=== PATIENT | female | born 1980 | race Caucasian/White ===

== ENCOUNTER 2016-09-23 04:38 | Emergency (ER) | payer OTHER ==
[2016-09-23 05:35] LABS: BASO % 0.2 % (0.0-1.0); EOS # 0.1 K/mm3 (0.0-0.50); EOS % 1.4 % (0.0-3.0); LARGE UNSTAINED CELL # 0.2 K/mm3 (0.0-0.4); LARGE UNSTAINED CELL % 1.8 % (0.0-4.0); LYMPH % 21.1 % (24.0-44.0); MEAN CORPUSCULAR HEMOGLOBIN 31.1 pg (27.0-33.0); MEAN CORPUSCULAR VOLUME 88.8 fl (80.0-96.0); MONO # 0.4 K/mm3 (0.0-0.8); NEUTROPHILS # 6.6 K/mm3 (1.8-7.7); NEUTROPHILS % 71.5 % (36.0-66.0); PLATELET COUNT, AUTOMATED 217 k/mm3 (150-450); RED CELL DISTRIBUTION WIDTH 12.2 % (11.5-14.5); WHITE BLOOD COUNT 9.2 K/mm3 (4.0-10.0)
[2016-09-23 06:02] LABS: ALBUMIN 2.9 GM/DL (3.2-5.2); ALBUMIN/GLOBULIN RATIO 0.91 (1.00-1.93); ALKALINE PHOSPHATASE 29 U/L (45-117); ALT/SGPT 10 U/L (12-78); ANION GAP 7 MEQ/L (8-16); AST/SGOT 17 U/L (15-37); BILIRUBIN,DIRECT < 0.1 MG/DL (0.0-0.2); BILIRUBIN,TOTAL 0.3 MG/DL (0.2-1.0); BLOOD UREA NITROGEN 9 MG/DL (7-18); CALCIUM LEVEL 8.2 MG/DL (8.5-10.1); CARBON DIOXIDE LEVEL 29 MEQ/L (21-32); CHLORIDE LEVEL 103 MEQ/L (98-107); CREATININE FOR GFR 0.67 MG/DL (0.55-1.02); GLOMERULAR FILTRATION RATE > 60.0 (>60); GLUCOSE, FASTING 89 MG/DL (70-105); POTASSIUM SERUM 3.7 MEQ/L (3.5-5.1); SODIUM LEVEL 139 MEQ/L (136-145); TOTAL PROTEIN 6.1 GM/DL (6.4-8.2)
--- NOTE | 2016-09-23 07:52 | REP ---
Clinical: Renal colic and right upper quadrant abdominal pain. Technique: Bee scale ultrasound using curved array transducer. Findings: The liver, spleen and pancreas are normal in contour, size, and echogenicity without focal hepatic, splenic or pancreatic lesions identified. The gallbladder is normal without gallstones, wall thickening or pericholecystic fluid. No biliary ductal dilatation is appreciated, and the common bile duct measures 4.9 mm diameter. The bilateral kidneys are normal in reniform shape without hydronephrosis and 11.5 x 5.9 x 5.6 cm on the right and 11.4 x 5.8 x 5.5 cm on the left. Spleen measures 10.3 x 3.8 x 9.9 cm. No ascites. Visualized portions of the abdominal aorta normal. Intrauterine identified (FHR equals 139 beats per minute). Impression: Normal complete abdominal ultrasound. Signed by Mahendra Amaro MD 09/23/2016 07:43 A
--- NOTE | 2016-09-23 09:47 | EDDOCDS ---
Nurse's Notes [facility] Name: Ana Simeon Age: 36 yrs Sex: Female : 1980 Arrival Date: 09/23/2016 Time: 04:38 Bed 12 Private MD: Diagnosis: Syncope and collapse-postural related; state-17 weeks, ultrasound unremarkable ;Strain of muscle, fascia and tendon of abdomen Presentation: 09/23 04:42 Presenting complaint: EMS states: per EMS pt is 17 weeks renay got up to go tm5 to the bathroom & had a syncopal episode now has right sided flank pain, BG FS 109, no IV access, vital signs stable, denies neck pain. Adult Sepsis Screening: The patient does not have new or worsening altered mentation. Patient's respiratory rate is less than 22. Systolic blood pressure is greater than 100. Patient has a qSOFA score of 0- Negative Sepsis Screen. Suicide/Homicide risk assessment- the patient denies having any suicidal and/or homicidal ideations and does not present with any other emotional, behavioral or mental health complaints. 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 Transition of care: patient was not received from another setting of care. 04:42 Acuity: MIS Level 3 tm5 04:42 Method Of Arrival: Ambulance tm5 Triage Assessment: 04:46 General: Appears in no apparent distress, Behavior is appropriate for age, cooperative. tm5 Pain: Location: right flank pain Pain currently is 1 out of 10 on a pain scale. Quality of pain is described as sharp. Pt Declines HIV testing. The patient is triaged at the bedside. See Assessment in Nurses Notes section of ED record. Neurological: Level of Consciousness is awake, alert, Oriented to person, place, time. Cardiovascular:. Respiratory: Airway is patent Respiratory effort is even, unlabored, Respiratory pattern is regular, symmetrical, Breath sounds are clear bilaterally. GI: Abdomen is flat, Bowel sounds present X 4 quads. : No deficits noted. Derm: Skin is dry, Skin is pale, Skin temperature is warm. TALENT DIRECTOR: 04:53 LMP 05/23/2016, Verified, EDC 02/27/2017, Gestational age from LMP: 17 weeks 4 tm5 days Historical: - Allergies: no known allergies; - Home Meds: 1. Vitamin Oral tab 1 tab once daily 2. folic acid 1 mg Oral tab - PMHx: none; - PSHx: D & C; - Social history: Smoking status: Patient states was never smoker of tobacco. No barriers to communication noted, The patient speaks fluent Indonesian. - Family history: Not pertinent. - : The pt / caregiver states he / she is not on anticoagulants. Home medication list is obtained from the patient. - Exposure Risk Screening:: None identified. Screenin:54 Screening information is obtained from the patient. Fall risk: No risks identified. tm5 Assistance ADL's: requires no assistance with activities of daily living. Abuse/DV Screen: The patient / caregiver reports he/she is: not in a situation that causes fear, pain or injury. Nutritional screening: No deficits noted. Advance Directives: Currently, there is no health care proxy. There is no active DNR order. home support is adequate. Assessment: 04:54 General: see triage assessment. Neurological: Level of Consciousness is awake, alert, tm5 Oriented to person, place, time. Cardiovascular: Rhythm is sinus rhythm No ectopy. 06:27 Reassessment: Patient appears in no apparent distress at this time. Patient states tm5 feeling better. Patient states symptoms have improved. 07:17 General: Appears in no apparent distress, comfortable, Behavior is appropriate for age, mlb1 cooperative. Pain: Location: right flank Pain currently is 2 out of 10 on a pain scale. Neurological: No deficits noted. Respiratory: No deficits noted. Derm: Skin is pink, warm & dry. normal. 08:20 General: Appears in no apparent distress, comfortable, Behavior is appropriate for age, mlb1 cooperative. Pain: Location: right flank Pain currently is 2 out of 10 on a pain scale. 09:15 General: Appears in no apparent distress, comfortable, Behavior is appropriate for age, mlb1 cooperative. Pain: Location: right flank Pain currently is 2 out of 10 on a pain scale. Neurological: No deficits noted. Respiratory: Airway is patent Respiratory effort is even, unlabored. Derm: No deficits noted. 09:31 General: Appears in no apparent distress, comfortable, Behavior is appropriate for age, mlb1 cooperative. Pain: Denies pain. Neurological: No deficits noted. Respiratory: No deficits noted. Vital Signs: 04:52 BP 105 / 67 (auto/); mlb1 04:52 Pulse Ox 98% ; mlb1 04:53 BP 105 / 67; Pulse 65; Resp 18; Temp 97.6(O); Pulse Ox 100% on R/A; Weight 72.57 kg; tm5 Height 5 ft. 7 in. (170.18 cm); Pain 1/10; 05:22 BP 95 / 64 (auto/); tm5 05:22 Pulse 66 MON; Pulse Ox 98% ; tm5 05:52 BP 104 / 68 (auto/); tm5 05:52 Pulse 74 MON; Pulse Ox 98% ; tm5 06:22 BP 111 / 73 (auto/); tm5 06:22 Pulse 68 MON; Resp 20 S; Pulse Ox 99% on R/A; Pain 2/10; tm5 08:56 BP 112 / 70 (auto/); mlb1 08:56 Pulse 74 MON; Pulse Ox 98% ; mlb1 09:15 BP 108 / 67 Supine; Pulse 74; mlb1 09:15 BP 112 / 74 Sitting; Pulse 80; mlb1 09:15 BP 112 / 77 Standing; Pulse 82; mlb1 09:31 BP 100 / 68; Pulse 82; Resp 16; Temp 98.4(TE); Pulse Ox 99% on R/A; Pain 0/10; mlb1 04:53 Body Mass Index 25.06 (72.57 kg, 170.18 cm) tm5 Vitals: 04:46 Glucose Measurement D-stick done by EMS. Log In Time N/A - ambulance arrival. tm5 05:02 Heart Tones 145BPM. tm5 ED Course: 04:39 Patient visited by Adriel Martinez PCA. kb5 04:39 Patient moved to Waiting kb5 04:40 Patient moved to 12 kb5 04:42 Patient visited by Yesy Coronado,MACHO. tm5 04:44 Triage Initiated tm5 04:47 Reilly Moreira DO is Attending Physician. cs11 04:47 Patient visited by Reilly Moreira DO. cs11 04:53 Patient visited by Yesy Coronado,MACHO. tm5 04:54 Awaiting ED physician evaluation. tm5 04:54 The patient / caregiver is instructed regarding the plan of care and ED course. Cardiac tm5 monitor on. Pulse ox on. NIBP on. 05:00 EKG done. (by ED staff). Reviewed by Reilly Moreira DO. mdr 05:01 Patient visited by Benny Barfield PCA. mdr 05:02 Patient visited by Yesy Coronado,MACHO. tm5 05:03 ED physician to see patient. tm5 05:34 Inserted saline lock: 20 gauge in right antecubital area and blood collected. The tm5 patient tolerated the procedure well. Labs drawn. (by ED staff). Sent per order to lab. 05:40 [facility] Payment Agreement was scanned into [employer] and attached to record. hs2 05:41 Patient visited by Yesy Coronado RN. tm5 05:43 Patient name changed from Ana\S\\S\Panov\S\ to Ana\S\ \S\Panov. EDMS 06:26 Patient visited by Yesy Coronado RN. tm5 06:48 Patient moved to Ultrasound ssc 06:49 Patient moved to Sono. tm5 06:57 Attending Physician role handed off by Reilly Moreira DO pc 06:57 Deepak Willingham MD is Attending Physician. pc 07:15 Patient moved to 12 mlb1 07:17 Patient visited by Yaakov Matos, MACHO. mlb1 07:56 ABD COMPLETE US Returned. EDMS 08:43 Patient visited by Yaakov Matos, MACHO. mlb1 09:16 Patient visited by Yaakov Matos, MACHO. mlb1 09:21 Radha Junior OB is Referral Physician. pc 09:31 Discontinued lock intact, bleeding controlled, pressure dressing applied, No mlb1 redness/swelling at site. No procedures done that require assistance. 09:32 Patient visited by Yaakov Matos, MACHO. mlb1 Administered Medications: 05:34 Drug: NS 0.9% 1000 ml [sodium chloride 0.9 % intravenous solution] Route: IV; Rate: tm5 bolus; Site: right antecubital; 06:51 Follow up: IV Status: Completed infusion; IV Intake: 1000ml tm5 Intake: 06:51 IV: 1000.00ml; Total: 1000.00ml. tm5 Order Results: Lab Order: Urinalysis; SPEC'M 09/23/16 05:29 Test: APPEARANCE, URINE; Value: HAZY; Range: CLEAR; Status: F Test: COLOR, URINE; Value: YELLOW; Range: YELLOW; Status: F Test: PH,URINE; Value: 8.0; Range: 5.0-9.0; Units: UNITS; Status: F Test: SPECIFIC GRAVITY URINE AUTO; Value: 1.012; Range: 1.002-1.035; Status: F Test: PROTEIN, URINE AUTO; Value: NEGATIVE; Range: NEGATIVE; Units: mg/dL; Status: F Test: GLUCOSE, URINE (UA) AUTO; Value: NEGATIVE; Range: NEGATIVE; Units: mg/dL; Status: F Test: KETONE, URINE AUTO; Value: NEGATIVE; Range: NEGATIVE; Units: mg/dL; Status: F Test: UROBILINOGEN, URINE AUTO; Value: 0.2; Range: 0.0-2.0; Units: mg/dL; Status: F Test: BILIRUBIN, URINE AUTO; Value: NEGATIVE; Range: NEGATIVE; Status: F Test: NITRITE, URINE AUTO; Value: NEGATIVE; Range: NEGATIVE; Status: F Test: LEUKOCYTE ESTERASE, URINE AUTO; Value: NEGATIVE; Range: NEGATIVE; Status: F Test: BLOOD, URINE BLOOD; Value: NEGATIVE; Range: NEGATIVE; Status: F Test: WBC, URINE AUTO; Value: 0; Range: 0-3; Units: /HPF; Status: F Test: RBC, URINE AUTO; Value: 4; Range: 0-3; Abnormal: Above high normal; Units: /HPF; Status: F Test: BACTERIA, URINE AUTO; Value: NEGATIVE; Range: NEGATIVE; Status: F Test: SQUAMOUS EPITHELIAL CELL UR AU; Value: 0; Range: 0-6; Units: /HPF; Status: F Test: MUCUS, URINE; Value: SMALL; Range: NEGATIVE; Status: F Test: HYALINE CAST, URINE AUTO; Value: 0; Range: 0-1; Units: /LPF; Status: F Lab Order: CBC with Diff; SPEC'M 09/23/16 05:29 Test: WHITE BLOOD COUNT; Value: 9.2; Range: 4.0-10.0; Units: K/mm3; Status: F Test: RED BLOOD COUNT; Value: 4.26; Range: 4.00-5.40; Units: M/mm3; Status: F Test: HEMOGLOBIN; Value: 13.3; Range: 12.0-16.0; Units: g/dl; Status: F Test: HEMATOCRIT; Value: 37.8; Range: 36.0-47.0; Units: %; Status: F Test: MEAN CORPUSCULAR VOLUME; Value: 88.8; Range: 80.0-96.0; Units: fl; Status: F Test: MEAN CORPUSCULAR HEMOGLOBIN; Value: 31.1; Range: 27.0-33.0; Units: pg; Status: F Test: MEAN CORPUSCULAR HGB CONC; Value: 35.0; Range: 32.0-36.5; Units: g/dl; Status: F Test: RED CELL DISTRIBUTION WIDTH; Value: 12.2; Range: 11.5-14.5; Units: %; Status: F Test: PLATELET COUNT, AUTOMATED; Value: 217; Range: 150-450; Units: k/mm3; Status: F Test: NEUTROPHILS %; Value: 71.5; Range: 36.0-66.0; Abnormal: Above high normal; Units: %; Status: F Test: LYMPH %; Value: 21.1; Range: 24.0-44.0; Abnormal: Below low normal; Units: %; Status: F Test: MONO %; Value: 4.0; Range: 0.0-5.0; Units: %; Status: F Test: EOS %; Value: 1.4; Range: 0.0-3.0; Units: %; Status: F Test: BASO %; Value: 0.2; Range: 0.0-1.0; Units: %; Status: F Test: LARGE UNSTAINED CELL %; Value: 1.8; Range: 0.0-4.0; Units: %; Status: F Test: NEUTROPHILS #; Value: 6.6; Range: 1.8-7.7; Units: K/mm3; Status: F Test: LYMPH #; Value: 2.0; Range: 1.5-4.5; Units: K/mm3; Status: F Test: MONO #; Value: 0.4; Range: 0.0-0.8; Units: K/mm3; Status: F Test: EOS #; Value: 0.1; Range: 0.0-0.50; Units: K/mm3; Status: F Test: BASO #; Value: 0.0; Range: 0.0-0.2; Units: K/mm3; Status: F Test: LARGE UNSTAINED CELL #; Value: 0.2; Range: 0.0-0.4; Units: K/mm3; Status: F Lab Order: MED Profile; [facility] 09/23/16 05:29 Test: GLUCOSE, FASTING; Value: 89; Range: 70-105; Units: MG/DL; Status: F Test: BLOOD UREA NITROGEN; Value: 9; Range: 7-18; Units: MG/DL; Status: F Test: CREATININE FOR GFR; Value: 0.67; Range: 0.55-1.02; Units: MG/DL; Status: F Test: GLOMERULAR FILTRATION RATE; Value: > 60.0; Range: >60; Status: F Test: SODIUM LEVEL; Value: 139; Range: 136-145; Units: MEQ/L; Status: F Test: POTASSIUM SERUM; Value: 3.7; Range: 3.5-5.1; Units: MEQ/L; Status: F Test: CHLORIDE LEVEL; Value: 103; Range: 98-107; Units: MEQ/L; Status: F Test: CARBON DIOXIDE LEVEL; Value: 29; Range: 21-32; Units: MEQ/L; Status: F Test: ANION GAP; Value: 7; Range: 8-16; Abnormal: Below low normal; Units: MEQ/L; Status: F Test: CALCIUM LEVEL; Value: 8.2; Range: 8.5-10.1; Abnormal: Below low normal; Units: MG/DL; Status: F Test Note: ; Units are mL/min/1.73 m2 Chronic Kidney Disease Staging per NKF: Stage I & II GFR >=60 Normal to Mildly Decreased Stage III GFR 30-59 Moderately Decreased Stage IV GFR 15-29 Severely Decreased Stage V GFR <15 Very Little GFR Left ESRD GFR <15 on INSTRUCTIONAL DEVELOPER Lab Order: Liver Profile; [facility] 09/23/16 05:29 Test: AST/SGOT; Value: 17; Range: 15-37; Units: U/L; Status: F Test: ALT/SGPT; Value: 10; Range: 12-78; Abnormal: Below low normal; Units: U/L; Status: F Test: ALKALINE PHOSPHATASE; Value: 29; Range: 45-117; Abnormal: Below low normal; Units: U/L; Status: F Test: BILIRUBIN,TOTAL; Value: 0.3; Range: 0.2-1.0; Units: MG/DL; Status: F Test: BILIRUBIN,DIRECT; Value: < 0.1; Range: 0.0-0.2; Units: MG/DL; Status: F Test: TOTAL PROTEIN; Value: 6.1; Range: 6.4-8.2; Abnormal: Below low normal; Units: GM/DL; Status: F Test: ALBUMIN; Value: 2.9; Range: 3.2-5.2; Abnormal: Below low normal; Units: GM/DL; Status: F Test: ALBUMIN/GLOBULIN RATIO; Value: 0.91; Range: 1.00-1.93; Abnormal: Below low normal; Status: F Radiology Order: ABD COMPLETE US Test: ABD COMPLETE US REASON FOR EXAMINATION: R renal colic; Clinical: Renal colic and right upper quadrant abdominal pain.; ; Technique: Bee scale ultrasound using curved array transducer.; ; Findings: The liver, spleen and pancreas are normal in contour, size, and; echogenicity without focal hepatic, splenic or pancreatic lesions identified.; The gallbladder is normal without gallstones, wall thickening or pericholecystic; fluid. No biliary ductal dilatation is appreciated, and the common bile duct; measures 4.9 mm diameter. The bilateral kidneys are normal in reniform shape; without hydronephrosis and 11.5 x 5.9 x 5.6 cm on the right and 11.4 x 5.8 x 5.5; cm on the left. Spleen measures 10.3 x 3.8 x 9.9 cm. No ascites. Visualized; portions of the abdominal aorta normal. Intrauterine identified (FHR; equals 139 beats per minute).; ; Impression:; Normal complete abdominal ultrasound.; ; ; Signed by; Mahendra Amaro MD 09/23/2016 07:43 A; Outcome: 09:21 Discharge ordered by Provider. 09:31 Discharge Assessment: Patient awake, alert and oriented x 3. No cognitive and/or mlb1 functional deficits noted. Patient verbalized understanding of disposition instructions. patient administered narcotics - no. The following High Risk Discharge criteria are identified: None. Discharged to home ambulatory. Condition: good. Discharge instructions given to patient, Instructed on discharge instructions, follow up and referral plans. Demonstrated understanding of instructions, Pt was receptive of discharge instructions/ teaching. Ultrasound Study completed. Property sent home with patient. :47 Patient left the ED. mlb1 Signatures: Dispatcher [employer] EDMS Deepak Willingham MD MD pc Castor, Steven ssc Barney, Michael B RN RN mlb1 Adriel Martinez, SUPERVISOR FILLING AND PACKING SUPERVISOR FILLING AND PACKING kb5 Reilly Moreira, DO DO cs11 Benny Barfield, SUPERVISOR FILLING AND PACKING SUPERVISOR FILLING AND PACKING mdr Kirti Enrique, Reg Reg hs2 Yesy Coronado,RN RN tm5 MTDD
--- NOTE | 2016-09-23 09:47 | EDDOCDS ---
Physician Documentation [facility] Name: Ana Simeon Age: 36 yrs Sex: Female : 1980 Arrival Date: 09/23/2016 Time: 04:38 Bed 12 Private MD: Disposition: 09/23 09:19 Critical Care: Critical care not applicable. pc Disposition: 09/23/16 09:21 Discharged to Home/Self Care. Impression: Syncope and collapse - postural related, state - 17 weeks, ultrasound unremarkable , Strain of muscle, fascia and tendon of abdomen. - Condition is Stable. - Discharge Instructions: Syncope. - Medication Reconciliation, Local Pharmacy Hours, Work Release Form - 1 day form. - Follow up: Radha Junior, OB; When: As previously arranged; Reason: Recheck today's complaints, Continuance of care. - Problem is new. - Symptoms have improved. - Notes: Per Sessions, drink plenty of fluids. You must stand slowly and pause before walking. Call their office with any concerns Historical: - Allergies: no known allergies; - Home Meds: 1. Vitamin Oral tab 1 tab once daily 2. folic acid 1 mg Oral tab - PMHx: none; - PSHx: D & C; - Social history: Smoking status: Patient states was never smoker of tobacco. No barriers to communication noted, The patient speaks fluent [place]. - Family history: Not pertinent. - : The pt / caregiver states he / she is not on anticoagulants. Home medication list is obtained from the patient. - Exposure Risk Screening:: None identified. BUSINESS TECHNOLOGY ARCHITECT: 04:53 LMP 05/23/2016, Verified, EDC 02/27/2017, Gestational age from LMP: 17 weeks 4 tm5 days Vital Signs: 04:52 BP 105 / 67 (auto/); mlb1 04:52 Pulse Ox 98% ; mlb1 04:53 BP 105 / 67; Pulse 65; Resp 18; Temp 97.6(O); Pulse Ox 100% on R/A; Weight 72.57 kg / tm5 159.99 lbs; Height 5 ft. 7 in. (170.18 cm); Pain 1/10; 05:22 BP 95 / 64 (auto/); tm5 05:22 Pulse 66 MON; Pulse Ox 98% ; tm5 05:52 BP 104 / 68 (auto/); tm5 05:52 Pulse 74 MON; Pulse Ox 98% ; tm5 06:22 BP 111 / 73 (auto/); tm5 06:22 Pulse 68 MON; Resp 20 S; Pulse Ox 99% on R/A; Pain 2/10; tm5 08:56 BP 112 / 70 (auto/); mlb1 08:56 Pulse 74 MON; Pulse Ox 98% ; mlb1 09:15 BP 108 / 67 Supine; Pulse 74; mlb1 09:15 BP 112 / 74 Sitting; Pulse 80; mlb1 09:15 BP 112 / 77 Standing; Pulse 82; mlb1 09:31 BP 100 / 68; Pulse 82; Resp 16; Temp 98.4(TE); Pulse Ox 99% on R/A; Pain 0/10; mlb1 04:53 Body Mass Index 25.06 (72.57 kg, 170.18 cm) tm5 MDM: 04:51 ECG WITH READING ER PHYS+CARDIAG ordered. EDMS 05:13 IV Saline Lock ordered. cs11 05:13 NS 0.9% 1000 ml IV at bolus once ordered. cs11 05:14 Urinalysis Ordered. EDMS 05:14 CBC with Diff Ordered. EDMS 05:14 MED Profile Ordered. EDMS 05:14 Liver Profile Ordered. EDMS 05:14 Urine Culture Ordered. EDMS 05:38 Financial registration complete. hs2 05:39 CBC with Diff Reviewed. cs11 05:40 [facility] Payment Agreement was scanned into [employer] and attached to record. hs2 06:04 MED Profile Reviewed. cs11 06:04 Liver Profile Reviewed. cs11 06:26 Urinalysis Reviewed. cs11 06:55 ABD COMPLETE US Ordered. EDMS 09:00 Orthostatic VS ordered. pc 09:19 Test interpretation: LAB - all labs as ordered have been reviewed, interpreted and pc considered in the overall management of the clinical presentation; Ultrasound - interpreted by Radiologist, Abdomen: FHR 136, else nad. The patient has been re-examined and re-evaluated. The patient's symptoms have markedly improved after treatment. Physician consultation: Dr. Herrera Howard MD was contacted at 09:19, regarding patient's condition, and advises the medications/treatment as provided. and agrees with the treatment provided and advises the discharge plans as outlined. Disposition: The historical points, examination findings, and any diagnostic results supporting the provided diagnosis, were discussed with the patient or legal guardian. The need for outpatient follow up with the provider listed on their discharge instructions was discussed. They were encouraged to return to [facility], or the nearest ED, if symptoms worsen/persist, or for any other questions/concerns. Administered Medications: 05:34 Drug: NS 0.9% 1000 ml [sodium chloride 0.9 % intravenous solution] Route: IV; Rate: tm5 bolus; Site: right antecubital; 06:51 Follow up: IV Status: Completed infusion; IV Intake: 1000ml tm5 Signatures: Dispatcher [employer] EDMS Deepak Willingham MD MD pc Barney, Michael B RN RN mlb1 Reilly Moreira, DO cs11 Kirti Enrique, Reg Reg hs2 Yesy Coronado,RN RN tm5 The chart was reviewed and I authenticate all verbal orders and agree with the evaluation and treatment provided.Corrections: (The following items were deleted from the chart) 06:55 06:28 RENAL US+US ordered. EDMS EDMS 06:55 06:32 Abdomen, limited+US ordered. EDMS EDMS Attachments: 05:40 [facility] Payment Agreement hs2 MTDD
--- NOTE | 2016-09-24 19:33 | ECGEPIP ---
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
--- NOTE | 2016-09-25 10:47 | EDDOCDS ---
Physician Documentation [facility] Name: Ana Simeon Age: 36 yrs Sex: Female : 1980 Arrival Date: 09/23/2016 Time: 04:38 Bed 12 Private MD: Disposition: 09/23 09:19 Critical Care: Critical care not applicable. pc Disposition: 09/23/16 09:21 Discharged to Home/Self Care. Impression: Syncope and collapse - postural related, state - 17 weeks, ultrasound unremarkable , Strain of muscle, fascia and tendon of abdomen. - Condition is Stable. - Discharge Instructions: Syncope. - Medication Reconciliation, Local Pharmacy Hours, Work Release Form - 1 day form. - Follow up: Radha Junior, OB; When: As previously arranged; Reason: Recheck today's complaints, Continuance of care. - Problem is new. - Symptoms have improved. - Notes: Per Sessions, drink plenty of fluids. You must stand slowly and pause before walking. Call their office with any concerns Historical: - Allergies: no known allergies; - Home Meds: 1. Vitamin Oral tab 1 tab once daily 2. folic acid 1 mg Oral tab - PMHx: none; - PSHx: D & C; - Social history: Smoking status: Patient states was never smoker of tobacco. No barriers to communication noted, The patient speaks fluent Tajik. - Family history: Not pertinent. - : The pt / caregiver states he / she is not on anticoagulants. Home medication list is obtained from the patient. - Exposure Risk Screening:: None identified. 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 7 in. (170.18 cm); Pain 1/10; 05:22 BP 95 / 64 (auto/); tm5 05:22 Pulse 66 MON; Pulse Ox 98% ; tm5 05:52 BP 104 / 68 (auto/); tm5 05:52 Pulse 74 MON; Pulse Ox 98% ; tm5 06:22 BP 111 / 73 (auto/); tm5 06:22 Pulse 68 MON; Resp 20 S; Pulse Ox 99% on R/A; Pain 2/10; tm5 08:56 BP 112 / 70 (auto/); mlb1 08:56 Pulse 74 MON; Pulse Ox 98% ; mlb1 09:15 BP 108 / 67 Supine; Pulse 74; mlb1 09:15 BP 112 / 74 Sitting; Pulse 80; mlb1 09:15 BP 112 / 77 Standing; Pulse 82; mlb1 09:31 BP 100 / 68; Pulse 82; Resp 16; Temp 98.4(TE); Pulse Ox 99% on R/A; Pain 0/10; mlb1 04:53 Body Mass Index 25.06 (72.57 kg, 170.18 cm) tm5 MDM: 04:51 ECG WITH READING ER PHYS+CARDIAG ordered. EDMS 05:13 IV Saline Lock ordered. cs11 05:13 NS 0.9% 1000 ml IV at bolus once ordered. cs11 05:14 Urinalysis Ordered. EDMS 05:14 CBC with Diff Ordered. EDMS 05:14 MED Profile Ordered. EDMS 05:14 Liver Profile Ordered. EDMS 05:14 Urine Culture Ordered. EDMS 05:38 Financial registration complete. hs2 05:39 CBC with Diff Reviewed. cs11 05:40 [facility] Payment Agreement was scanned into Bizo and attached to record. hs2 06:04 MED Profile Reviewed. cs11 06:04 Liver Profile Reviewed. cs11 06:26 Urinalysis Reviewed. cs11 06:55 ABD COMPLETE US Ordered. EDMS 09:00 Orthostatic VS ordered. pc 09:19 Test interpretation: LAB - all labs as ordered have been reviewed, interpreted and pc considered in the overall management of the clinical presentation; Ultrasound - interpreted by Radiologist, Abdomen: FHR 136, else nad. The patient has been re-examined and re-evaluated. The patient's symptoms have markedly improved after treatment. Physician consultation: Dr. Herrera Howard MD was contacted at 09:19, regarding patient's condition, and advises the medications/treatment as provided. and agrees with the treatment provided and advises the discharge plans as outlined. Disposition: The historical points, examination findings, and any diagnostic results supporting the provided diagnosis, were discussed with the patient or legal guardian. The need for outpatient follow up with the provider listed on their discharge instructions was discussed. They were encouraged to return to [facility], or the nearest ED, if symptoms worsen/persist, or for any other questions/concerns. 15:30 T-Sheet-- Draft Copy was scanned into Bizo and attached to record. gb 15:30 ECG/EKG was scanned into Bizo and attached to record. gb Administered Medications: 05:34 Drug: NS 0.9% 1000 ml [sodium chloride 0.9 % intravenous solution] Route: IV; Rate: tm5 bolus; Site: right antecubital; 06:51 Follow up: IV Status: Completed infusion; IV Intake: 1000ml tm5 Signatures: Dispatcher [employer] EDMS Deepak Willingham MD MD pc Hope Rowe, Reg Reg gb Yaakov Matos RN RN mlb1 Reilly Moreira, DO cs11 Kirti Enrique, Reg Reg hs2 Yesy Coronado,RN RN tm5 The chart was reviewed and I authenticate all verbal orders and agree with the evaluation and treatment provided.Corrections: (The following items were deleted from the chart) 06:55 06:28 RENAL US+US ordered. EDMS EDMS 06:55 06:32 Abdomen, limited+US ordered. EDMS EDMS Attachments: 05:40 [facility] Payment Agreement hs2 15:30 T-Sheet-- Draft Copy gb 15:30 ECG/EKG gb Chart Complete MTDD
--- NOTE | 2016-09-25 10:48 | EDDOCDS ---
Physician Documentation [facility] Name: Ana Simeon Age: 36 yrs Sex: Female : 1980 Arrival Date: 09/23/2016 Time: 04:38 Bed 12 Private MD: Disposition: 09/23 09:19 Critical Care: Critical care not applicable. pc Disposition: 09/23/16 09:21 Discharged to Home/Self Care. Impression: Syncope and collapse - postural related, state - 17 weeks, ultrasound unremarkable , Strain of muscle, fascia and tendon of abdomen. - Condition is Stable. - Discharge Instructions: Syncope. - Medication Reconciliation, Local Pharmacy Hours, Work Release Form - 1 day form. - Follow up: Radha Junior, OB; When: As previously arranged; Reason: Recheck today's complaints, Continuance of care. - Problem is new. - Symptoms have improved. - Notes: Per Sessions, drink plenty of fluids. You must stand slowly and pause before walking. Call their office with any concerns Historical: - Allergies: no known allergies; - Home Meds: 1. Vitamin Oral tab 1 tab once daily 2. folic acid 1 mg Oral tab - PMHx: none; - PSHx: D & C; - Social history: Smoking status: Patient states was never smoker of tobacco. No barriers to communication noted, The patient speaks fluent Hungarian. - Family history: Not pertinent. - : The pt / caregiver states he / she is not on anticoagulants. Home medication list is obtained from the patient. - Exposure Risk Screening:: None identified. 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 7 in. (170.18 cm); Pain 1/10; 05:22 BP 95 / 64 (auto/); tm5 05:22 Pulse 66 MON; Pulse Ox 98% ; tm5 05:52 BP 104 / 68 (auto/); tm5 05:52 Pulse 74 MON; Pulse Ox 98% ; tm5 06:22 BP 111 / 73 (auto/); tm5 06:22 Pulse 68 MON; Resp 20 S; Pulse Ox 99% on R/A; Pain 2/10; tm5 08:56 BP 112 / 70 (auto/); mlb1 08:56 Pulse 74 MON; Pulse Ox 98% ; mlb1 09:15 BP 108 / 67 Supine; Pulse 74; mlb1 09:15 BP 112 / 74 Sitting; Pulse 80; mlb1 09:15 BP 112 / 77 Standing; Pulse 82; mlb1 09:31 BP 100 / 68; Pulse 82; Resp 16; Temp 98.4(TE); Pulse Ox 99% on R/A; Pain 0/10; mlb1 04:53 Body Mass Index 25.06 (72.57 kg, 170.18 cm) tm5 MDM: 04:51 ECG WITH READING ER PHYS+CARDIAG ordered. EDMS 05:13 IV Saline Lock ordered. cs11 05:13 NS 0.9% 1000 ml IV at bolus once ordered. cs11 05:14 Urinalysis Ordered. EDMS 05:14 CBC with Diff Ordered. EDMS 05:14 MED Profile Ordered. EDMS 05:14 Liver Profile Ordered. EDMS 05:14 Urine Culture Ordered. EDMS 05:38 Financial registration complete. hs2 05:39 CBC with Diff Reviewed. cs11 05:40 [facility] Payment Agreement was scanned into EPS and attached to record. hs2 06:04 MED Profile Reviewed. cs11 06:04 Liver Profile Reviewed. cs11 06:26 Urinalysis Reviewed. cs11 06:55 ABD COMPLETE US Ordered. EDMS 09:00 Orthostatic VS ordered. pc 09:19 Test interpretation: LAB - all labs as ordered have been reviewed, interpreted and pc considered in the overall management of the clinical presentation; Ultrasound - interpreted by Radiologist, Abdomen: FHR 136, else nad. The patient has been re-examined and re-evaluated. The patient's symptoms have markedly improved after treatment. Physician consultation: Dr. Herrera Howard MD was contacted at 09:19, regarding patient's condition, and advises the medications/treatment as provided. and agrees with the treatment provided and advises the discharge plans as outlined. Disposition: The historical points, examination findings, and any diagnostic results supporting the provided diagnosis, were discussed with the patient or legal guardian. The need for outpatient follow up with the provider listed on their discharge instructions was discussed. They were encouraged to return to [facility], or the nearest ED, if symptoms worsen/persist, or for any other questions/concerns. 15:30 T-Sheet-- Draft Copy was scanned into EPS and attached to record. gb 15:30 ECG/EKG was scanned into EPS and attached to record. gb Administered Medications: 05:34 Drug: NS 0.9% 1000 ml [sodium chloride 0.9 % intravenous solution] Route: IV; Rate: tm5 bolus; Site: right antecubital; 06:51 Follow up: IV Status: Completed infusion; IV Intake: 1000ml tm5 Signatures: Dispatcher [employer] EDMS Deepak Willingham MD MD pc Hope Rowe, Reg Reg gb Yaakov Matos RN RN mlb1 Reilly Moreira, DO cs11 Kirti Enrique, Reg Reg hs2 Yesy Coronado,RN RN tm5 The chart was reviewed and I authenticate all verbal orders and agree with the evaluation and treatment provided.Corrections: (The following items were deleted from the chart) 06:55 06:28 RENAL US+US ordered. EDMS EDMS 06:55 06:32 Abdomen, limited+US ordered. EDMS EDMS Attachments: 05:40 [facility] Payment Agreement hs2 15:30 T-Sheet-- Draft Copy gb 15:30 ECG/EKG gb Chart Complete MTDD
--- NOTE | 2016-09-25 10:48 | EDDOCDS ---
Nurse's Notes [facility] Name: Ana Galindo Age: 36 yrs Sex: Female : 1980 Arrival Date: 09/23/2016 Time: 04:38 Bed 12 Private MD: Diagnosis: Syncope and collapse-postural related; state-17 weeks, ultrasound unremarkable ;Strain of muscle, fascia and tendon of abdomen Presentation: 09/23 04:42 Presenting complaint: EMS states: per EMS pt is 17 weeks renay got up to go tm5 to the bathroom & had a syncopal episode now has right sided flank pain, BG FS 109, no IV access, vital signs stable, denies neck pain. Adult Sepsis Screening: The patient does not have new or worsening altered mentation. Patient's respiratory rate is less than 22. Systolic blood pressure is greater than 100. Patient has a qSOFA score of 0- Negative Sepsis Screen. Suicide/Homicide risk assessment- the patient denies having any suicidal and/or homicidal ideations and does not present with any other emotional, behavioral or mental health complaints. 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 Transition of care: patient was not received from another setting of care. 04:42 Acuity: MIS Level 3 tm5 04:42 Method Of Arrival: Ambulance tm5 Triage Assessment: 04:46 General: Appears in no apparent distress, Behavior is appropriate for age, cooperative. tm5 Pain: Location: right flank pain Pain currently is 1 out of 10 on a pain scale. Quality of pain is described as sharp. Pt Declines HIV testing. The patient is triaged at the bedside. See Assessment in Nurses Notes section of ED record. Neurological: Level of Consciousness is awake, alert, Oriented to person, place, time. Cardiovascular:. Respiratory: Airway is patent Respiratory effort is even, unlabored, Respiratory pattern is regular, symmetrical, Breath sounds are clear bilaterally. GI: Abdomen is flat, Bowel sounds present X 4 quads. : No deficits noted. Derm: Skin is dry, Skin is pale, Skin temperature is warm. 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 Vitamin Oral tab 1 tab once daily 2. folic acid 1 mg Oral tab - PMHx: none; - PSHx: D & C; - Social history: Smoking status: Patient states was never smoker of tobacco. No barriers to communication noted, The patient speaks fluent Polish. - Family history: Not pertinent. - : The pt / caregiver states he / she is not on anticoagulants. Home medication list is obtained from the patient. - Exposure Risk Screening:: None identified. Screenin:54 Screening information is obtained from the patient. Fall risk: No risks identified. tm5 Assistance ADL's: requires no assistance with activities of daily living. Abuse/DV Screen: The patient / caregiver reports he/she is: not in a situation that causes fear, pain or injury. Nutritional screening: No deficits noted. Advance Directives: Currently, there is no health care proxy. There is no active DNR order. home support is adequate. Assessment: 04:54 General: see triage assessment. Neurological: Level of Consciousness is awake, alert, tm5 Oriented to person, place, time. Cardiovascular: Rhythm is sinus rhythm No ectopy. 06:27 Reassessment: Patient appears in no apparent distress at this time. Patient states tm5 feeling better. Patient states symptoms have improved. 07:17 General: Appears in no apparent distress, comfortable, Behavior is appropriate for age, mlb1 cooperative. Pain: Location: right flank Pain currently is 2 out of 10 on a pain scale. Neurological: No deficits noted. Respiratory: No deficits noted. Derm: Skin is pink, warm & dry. normal. 08:20 General: Appears in no apparent distress, comfortable, Behavior is appropriate for age, mlb1 cooperative. Pain: Location: right flank Pain currently is 2 out of 10 on a pain scale. 09:15 General: Appears in no apparent distress, comfortable, Behavior is appropriate for age, mlb1 cooperative. Pain: Location: right flank Pain currently is 2 out of 10 on a pain scale. Neurological: No deficits noted. Respiratory: Airway is patent Respiratory effort is even, unlabored. Derm: No deficits noted. 09:31 General: Appears in no apparent distress, comfortable, Behavior is appropriate for age, mlb1 cooperative. Pain: Denies pain. Neurological: No deficits noted. Respiratory: No deficits noted. Vital Signs: 04:52 BP 105 / 67 (auto/); mlb1 04:52 Pulse Ox 98% ; mlb1 04:53 BP 105 / 67; Pulse 65; Resp 18; Temp 97.6(O); Pulse Ox 100% on R/A; Weight 72.57 kg; tm5 Height 5 ft. 7 in. (170.18 cm); Pain 1/10; 05:22 BP 95 / 64 (auto/); tm5 05:22 Pulse 66 MON; Pulse Ox 98% ; tm5 05:52 BP 104 / 68 (auto/); tm5 05:52 Pulse 74 MON; Pulse Ox 98% ; tm5 06:22 BP 111 / 73 (auto/); tm5 06:22 Pulse 68 MON; Resp 20 S; Pulse Ox 99% on R/A; Pain 2/10; tm5 08:56 BP 112 / 70 (auto/); mlb1 08:56 Pulse 74 MON; Pulse Ox 98% ; mlb1 09:15 BP 108 / 67 Supine; Pulse 74; mlb1 09:15 BP 112 / 74 Sitting; Pulse 80; mlb1 09:15 BP 112 / 77 Standing; Pulse 82; mlb1 09:31 BP 100 / 68; Pulse 82; Resp 16; Temp 98.4(TE); Pulse Ox 99% on R/A; Pain 0/10; mlb1 04:53 Body Mass Index 25.06 (72.57 kg, 170.18 cm) tm5 Vitals: 04:46 Glucose Measurement D-stick done by EMS. Log In Time N/A - ambulance arrival. tm5 05:02 Heart Tones 145BPM. tm5 ED Course: 04:39 Patient visited by Adriel Martinez PCA. kb5 04:39 Patient moved to Waiting kb5 04:40 Patient moved to 12 kb5 04:42 Patient visited by Yesy Coronado,MACHO. tm5 04:44 Triage Initiated tm5 04:47 Reilly Mejia DO is Attending Physician. cs11 04:47 Patient visited by Reilly Mejia DO. cs11 04:53 Patient visited by Yesy Coronado,MACHO. tm5 04:54 Awaiting ED physician evaluation. tm5 04:54 The patient / caregiver is instructed regarding the plan of care and ED course. Cardiac tm5 monitor on. Pulse ox on. NIBP on. 05:00 EKG done. (by ED staff). Reviewed by Reilly Mejia DO. mdr 05:01 Patient visited by Benny Barfield PCA. mdr 05:02 Patient visited by Yesy Coronado,MACHO. tm5 05:03 ED physician to see patient. tm5 05:34 Inserted saline lock: 20 gauge in right antecubital area and blood collected. The tm5 patient tolerated the procedure well. Labs drawn. (by ED staff). Sent per order to lab. 05:40 [facility] Payment Agreement was scanned into [employer] and attached to record. hs2 05:41 Patient visited by Yesy Coronado RN. tm5 05:43 Patient name changed from Ana\S\\S\Panov\S\ to Ana\S\ \S\Panov. EDMS 06:26 Patient visited by Yesy Coronado RN. tm5 06:48 Patient moved to Ultrasound ssc 06:49 Patient moved to Sono. tm5 06:57 Attending Physician role handed off by Reilly Mejia DO pc 06:57 Deepak Willingham MD is Attending Physician. pc 07:15 Patient moved to 12 mlb1 07:17 Patient visited by Yaakov Matos, MACHO. mlb1 07:56 ABD COMPLETE US Returned. EDMS 08:43 Patient visited by Yaakov Matos, MACHO. mlb1 09:16 Patient visited by Yaakov Matos, MACHO. mlb1 09:21 Radha Junior OB is Referral Physician. pc 09:31 Discontinued lock intact, bleeding controlled, pressure dressing applied, No mlb1 redness/swelling at site. No procedures done that require assistance. 09:32 Patient visited by Yaakov Matos, MACHO. mlb1 15:30 T-Sheet-- Draft Copy was scanned into [employer] and attached to record. gb 15:30 ECG/EKG was scanned into [employer] and attached to record. gb 09/24 20:02 EKG-ADULT Returned. EDMS Administered Medications: 09/23 05:34 Drug: NS 0.9% 1000 ml [sodium chloride 0.9 % intravenous solution] Route: IV; Rate: tm5 bolus; Site: right antecubital; 06:51 Follow up: IV Status: Completed infusion; IV Intake: 1000ml tm5 Intake: 06:51 IV: 1000.00ml; Total: 1000.00ml. tm5 Order Results: Lab Order: Urinalysis; SPEC'M 09/23/16 05:29 Test: APPEARANCE, URINE; Value: HAZY; Range: CLEAR; Status: F Test: COLOR, URINE; Value: YELLOW; Range: YELLOW; Status: F Test: PH,URINE; Value: 8.0; Range: 5.0-9.0; Units: UNITS; Status: F Test: SPECIFIC GRAVITY URINE AUTO; Value: 1.012; Range: 1.002-1.035; Status: F Test: PROTEIN, URINE AUTO; Value: NEGATIVE; Range: NEGATIVE; Units: mg/dL; Status: F Test: GLUCOSE, URINE (UA) AUTO; Value: NEGATIVE; Range: NEGATIVE; Units: mg/dL; Status: F Test: KETONE, URINE AUTO; Value: NEGATIVE; Range: NEGATIVE; Units: mg/dL; Status: F Test: UROBILINOGEN, URINE AUTO; Value: 0.2; Range: 0.0-2.0; Units: mg/dL; Status: F Test: BILIRUBIN, URINE AUTO; Value: NEGATIVE; Range: NEGATIVE; Status: F Test: NITRITE, URINE AUTO; Value: NEGATIVE; Range: NEGATIVE; Status: F Test: LEUKOCYTE ESTERASE, URINE AUTO; Value: NEGATIVE; Range: NEGATIVE; Status: F Test: BLOOD, URINE BLOOD; Value: NEGATIVE; Range: NEGATIVE; Status: F Test: WBC, URINE AUTO; Value: 0; Range: 0-3; Units: /HPF; Status: F Test: RBC, URINE AUTO; Value: 4; Range: 0-3; Abnormal: Above high normal; Units: /HPF; Status: F Test: BACTERIA, URINE AUTO; Value: NEGATIVE; Range: NEGATIVE; Status: F Test: SQUAMOUS EPITHELIAL CELL UR AU; Value: 0; Range: 0-6; Units: /HPF; Status: F Test: MUCUS, URINE; Value: SMALL; Range: NEGATIVE; Status: F Test: HYALINE CAST, URINE AUTO; Value: 0; Range: 0-1; Units: /LPF; Status: F Lab Order: Urine Culture; SPEC'M 09/23/16 05:29 Test: URINE CULTURE; Value: <EXTERNAL COMMENT eCWMed> FULL REPORT IN LAB NOTES (eCW and Medent).; Status: F Test: URINE CULTURE; Value: URINE CULTURE RESULT NO GROWTH CLINICAL SIGNIFICANCE 1 ORGANISM; Status: F Lab Order: CBC with Diff; SPEC'M 09/23/16 05:29 Test: WHITE BLOOD COUNT; Value: 9.2; Range: 4.0-10.0; Units: K/mm3; Status: F Test: RED BLOOD COUNT; Value: 4.26; Range: 4.00-5.40; Units: M/mm3; Status: F Test: HEMOGLOBIN; Value: 13.3; Range: 12.0-16.0; Units: g/dl; Status: F Test: HEMATOCRIT; Value: 37.8; Range: 36.0-47.0; Units: %; Status: F Test: MEAN CORPUSCULAR VOLUME; Value: 88.8; Range: 80.0-96.0; Units: fl; Status: F Test: MEAN CORPUSCULAR HEMOGLOBIN; Value: 31.1; Range: 27.0-33.0; Units: pg; Status: F Test: MEAN CORPUSCULAR HGB CONC; Value: 35.0; Range: 32.0-36.5; Units: g/dl; Status: F Test: RED CELL DISTRIBUTION WIDTH; Value: 12.2; Range: 11.5-14.5; Units: %; Status: F Test: PLATELET COUNT, AUTOMATED; Value: 217; Range: 150-450; Units: k/mm3; Status: F Test: NEUTROPHILS %; Value: 71.5; Range: 36.0-66.0; Abnormal: Above high normal; Units: %; Status: F Test: LYMPH %; Value: 21.1; Range: 24.0-44.0; Abnormal: Below low normal; Units: %; Status: F Test: MONO %; Value: 4.0; Range: 0.0-5.0; Units: %; Status: F Test: EOS %; Value: 1.4; Range: 0.0-3.0; Units: %; Status: F Test: BASO %; Value: 0.2; Range: 0.0-1.0; Units: %; Status: F Test: LARGE UNSTAINED CELL %; Value: 1.8; Range: 0.0-4.0; Units: %; Status: F Test: NEUTROPHILS #; Value: 6.6; Range: 1.8-7.7; Units: K/mm3; Status: F Test: LYMPH #; Value: 2.0; Range: 1.5-4.5; Units: K/mm3; Status: F Test: MONO #; Value: 0.4; Range: 0.0-0.8; Units: K/mm3; Status: F Test: EOS #; Value: 0.1; Range: 0.0-0.50; Units: K/mm3; Status: F Test: BASO #; Value: 0.0; Range: 0.0-0.2; Units: K/mm3; Status: F Test: LARGE UNSTAINED CELL #; Value: 0.2; Range: 0.0-0.4; Units: K/mm3; Status: F Lab Order: MED Profile; [facility] 05:29 Test: GLUCOSE, FASTING; Value: 89; Range: 70-105; Units: MG/DL; Status: F Test: BLOOD UREA NITROGEN; Value: 9; Range: 7-18; Units: MG/DL; Status: F Test: CREATININE FOR GFR; Value: 0.67; Range: 0.55-1.02; Units: MG/DL; Status: F Test: GLOMERULAR FILTRATION RATE; Value: > 60.0; Range: >60; Status: F Test: SODIUM LEVEL; Value: 139; Range: 136-145; Units: MEQ/L; Status: F Test: POTASSIUM SERUM; Value: 3.7; Range: 3.5-5.1; Units: MEQ/L; Status: F Test: CHLORIDE LEVEL; Value: 103; Range: 98-107; Units: MEQ/L; Status: F Test: CARBON DIOXIDE LEVEL; Value: 29; Range: 21-32; Units: MEQ/L; Status: F Test: ANION GAP; Value: 7; Range: 8-16; Abnormal: Below low normal; Units: MEQ/L; Status: F Test: CALCIUM LEVEL; Value: 8.2; Range: 8.5-10.1; Abnormal: Below low normal; Units: MG/DL; Status: F Test Note: ; Units are mL/min/1.73 m2 Chronic Kidney Disease Staging per NKF: Stage I & II GFR >=60 Normal to Mildly Decreased Stage III GFR 30-59 Moderately Decreased Stage IV GFR 15-29 Severely Decreased Stage V GFR <15 Very Little GFR Left ESRD GFR <15 on MAGNETIC TAPE WINDER Lab Order: Liver Profile; SPEC'M 09/23/16 05:29 Test: AST/SGOT; Value: 17; Range: 15-37; Units: U/L; Status: F Test: ALT/SGPT; Value: 10; Range: 12-78; Abnormal: Below low normal; Units: U/L; Status: F Test: ALKALINE PHOSPHATASE; Value: 29; Range: 45-117; Abnormal: Below low normal; Units: U/L; Status: F Test: BILIRUBIN,TOTAL; Value: 0.3; Range: 0.2-1.0; Units: MG/DL; Status: F Test: BILIRUBIN,DIRECT; Value: < 0.1; Range: 0.0-0.2; Units: MG/DL; Status: F Test: TOTAL PROTEIN; Value: 6.1; Range: 6.4-8.2; Abnormal: Below low normal; Units: GM/DL; Status: F Test: ALBUMIN; Value: 2.9; Range: 3.2-5.2; Abnormal: Below low normal; Units: GM/DL; Status: F Test: ALBUMIN/GLOBULIN RATIO; Value: 0.91; Range: 1.00-1.93; Abnormal: Below low normal; Status: F Radiology Order: EKG-ADULT Test: EKG-ADULT REASON FOR EXAMINATION: Syncope; Stationary ECG Study; [facility] - ED; ; Test Date: 2016-09-23; Pat Name: ANA GALINDO Department:; Room: -; Gender: F Branch Lead: mr; : 1980 Requested By: REILLY MEJIA; Order Number: [id number] Reading MD: Martha Garcia; Measurements; Intervals [place]; Rate: 66 P: 46; RI: 175 QRS: 17; QRSD: 98 T: 8; QT: 393; QTc: 412; Interpretive Statements; SINUS RHYTHM; POSSIBLE RIGHT VENTRICULAR CONDUCTION DELAY; NO PRIOR FOR COMPARISON; Electronically Signed On 09-24-2016 19:32:54 EST by Martha Garcia; Radiology Order: ABD COMPLETE US Test: ABD COMPLETE US REASON FOR EXAMINATION: R renal colic; Clinical: Renal colic and right upper quadrant abdominal pain.; ; Technique: Bee scale ultrasound using curved array transducer.; ; Findings: The liver, spleen and pancreas are normal in contour, size, and; echogenicity without focal hepatic, splenic or pancreatic lesions identified.; The gallbladder is normal without gallstones, wall thickening or pericholecystic; fluid. No biliary ductal dilatation is appreciated, and the common bile duct; measures 4.9 mm diameter. The bilateral kidneys are normal in reniform shape; without hydronephrosis and 11.5 x 5.9 x 5.6 cm on the right and 11.4 x 5.8 x 5.5; cm on the left. Spleen measures 10.3 x 3.8 x 9.9 cm. No ascites. Visualized; portions of the abdominal aorta normal. Intrauterine identified (FHR; equals 139 beats per minute).; ; Impression:; Normal complete abdominal ultrasound.; ; ; Signed by; Mahendra Amaro MD 09/23/2016 07:43 A; Outcome: 09:21 Discharge ordered by Provider. 09:31 Discharge Assessment: Patient awake, alert and oriented x 3. No cognitive and/or mlb1 functional deficits noted. Patient verbalized understanding of disposition instructions. patient administered narcotics - no. The following High Risk Discharge criteria are identified: None. Discharged to home ambulatory. Condition: good. Discharge instructions given to patient, Instructed on discharge instructions, follow up and referral plans. Demonstrated understanding of instructions, Pt was receptive of discharge instructions/ teaching. Ultrasound Study completed. Property sent home with patient. 09:47 Patient left the ED. mlb1 Signatures: Dispatcher [employer] EDMS Deepak Willingham MD MD pc Castor, Steven ssc Barnhardt, Gloria, Reg Reg gb Yaaokv Matos, RN RN mlb1 Adriel Martinez, TAKE UP OPERATOR TAKE UP OPERATOR kb5 Reilly Mejia DO DO cs11 Benny Barfield, TAKE UP OPERATOR TAKE UP OPERATOR mdr Kirti Enrique, Reg Reg hs2 Yesy Coronado,RN RN tm5 Chart Complete MTDD
== END 2016-09-23 09:47 | disposition home or self-care (01) ==
LOC: M ED 04:38
DX: O99.89 Other specified diseases and conditions complicating pregnancy, childbirth and the puerperium (principal); R10.30 Lower abdominal pain, unspecified; R31.9 Hematuria, unspecified; Z3A.17 17 weeks gestation of pregnancy; Z79.899 Other long term (current) drug therapy

== ENCOUNTER 2016-09-28 14:15 | Emergency (ER) | payer OTHER ==
[2016-09-28] MEDS ORDERED: ACETAMINOPHEN 325 MG TAB As Ordered ONE (16:34)
--- NOTE | 2016-09-28 18:00 | EDDOCDS ---
Physician Documentation [facility] Name: Ana Simeon Age: 36 yrs Sex: Female : 1980 Arrival Date: 09/28/2016 Time: 14:15 Bed PR Private MD: Radha Junior [facility] Disposition: 09/28/16 17:43 Discharged to Home/Self Care. Impression: Postconcussional syndrome, Low back pain, Hematuria. - Condition is Stable. - Discharge Instructions: General Headache Without Cause, Hematuria, Adult, Second Trimester of , [id number]. - Medication Reconciliation form. - Follow up: Radha Junior [facility]; When: Tomorrow; Reason: Wound/Symptom Recheck, Recheck today's complaints, Worsening of conditions, Continuance of care. - Problem is an ongoing problem. - Symptoms are unchanged. - Notes: May take tylenol as needed for pain Historical: - Allergies: No known drug Allergies; - Home Meds: 1. folic acid 1 mg Oral tab once daily 2. Vitamin Oral tab 1 tab once daily - PMHx: cardiac issues that she saw a orthopedic rn for and had an echo that may have shown a right ventricular delay; - PSHx: D & C; - Social history: Smoking status: Patient states former smoker of tobacco. No barriers to communication noted, The patient speaks fluent Belarusian. - Family history: Not pertinent. - : The pt / caregiver states he / she is not on anticoagulants. Home medication list is obtained from the patient, [employer] import data. - Exposure Risk Screening:: None identified. AUTOMATIC LOG CUT OFF SAWYER: 09/28 14:35 2, 1, Living 0, LMP 05/23/2016 kcs Vital Signs: 14:17 BP 129 / 80; Pulse 103; Resp 18 S; Temp 98.0(O); Pulse Ox 98% on R/A; Weight 71.67 kg / gr2 158.01 lbs (R); Height 5 ft. 7 in. (170.18 cm) (R); Pain 3/10; 17:56 BP 122 / 82; Pulse 76; Resp 16; Temp 97.9(O); Pulse Ox 100% ; lr2 14:17 Body Mass Index 24.75 (71.67 kg, 170.18 cm) gr2 MDM: 16:13 ECG WITH READING ER PHYS+CARDIAG ordered. EDMS 16:31 Heart Tones ordered. cc10 16:32 Acetaminophen Tablet 975 mg PO once ordered. cc10 16:33 UA Ordered. EDMS 17:35 UA Reviewed. cc10 Administered Medications: 16:37 Not Given (Patient Refused; Pt states that her headache isn't severe enough for ms18 medicationss): Acetaminophen Tablet 975 mg PO once Signatures: Dispatcher [employer] EDMS Matilda Mendes, RN RN kcs Marcin Blancas, PA-C PA-C cc10 Cherrie Cortes RN RN ms18 MTDD
--- NOTE | 2016-09-28 18:00 | EDDOCDS ---
Nurse's Notes [facility] Name: Ana Simeon Age: 36 yrs Sex: Female : 1980 Arrival Date: 09/28/2016 Time: 14:15 Bed PR Private MD: Radha Junior [facility] Diagnosis: Postconcussional syndrome;Low back pain;Hematuria Presentation: 09/28 14:31 Presenting complaint: Patient states: on she started with right flank pain - kcs increased in intensity - states she sat on the toilet to pee and then passed out - woke up and went back to bed - was seen here, treated and released - did f/u with Ob but they did not do any testing and she continues to have a headache and right flank pain. is 18 weeks . Adult Sepsis Screening: The patient does not have new or worsening altered mentation. Patient's respiratory rate is less than 22. Systolic blood pressure is greater than 100. Patient has a qSOFA score of 0- Negative Sepsis Screen. Suicide/Homicide risk assessment- the patient denies having any suicidal and/or homicidal ideations and does not present with any other emotional, behavioral or mental health complaints. 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 Transition of care: patient was not received from another setting of care. 14:31 Acuity: MIS Level 3 kcs 14:31 Method Of Arrival: Walkin/Carried/Asstd kcs 17:59 This patient has no additional risk factors. ms18 Triage Assessment: 14:35 Headache History: A change in the character of the headache the patient is experiencing kcs has occured. General: Appears comfortable, well developed, well nourished, well groomed, Behavior is cooperative, pleasant. Pain: Location: head = 2/10 and right flank pain = 2/10. HIV screening NA for this visit active duty . Neurological: Level of Consciousness is awake, alert. Respiratory: Airway is patent Respiratory effort is even, unlabored, Respiratory pattern is regular, symmetrical. Derm: Skin is intact, is healthy with good turgor, Skin is dry, Skin is normal. 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 folic acid 1 mg Oral tab once daily 2. Vitamin Oral tab 1 tab once daily - PMHx: cardiac issues that she saw a investigative assistant for and had an echo that may have shown a right ventricular delay; - PSHx: D & C; - Social history: Smoking status: Patient states former smoker of tobacco. No barriers to communication noted, The patient speaks fluent Eritrean. - Family history: Not pertinent. - : The pt / caregiver states he / she is not on anticoagulants. Home medication list is obtained from the patient, [employer] import data. - Exposure Risk Screening:: None identified. Screenin:58 Screening information is obtained from the patient. Fall risk: No risks identified. ms18 Assistance ADL's: requires no assistance with activities of daily living. Abuse/DV Screen: The patient / caregiver reports he/she is: not in a situation that causes fear, pain or injury. Nutritional screening: No deficits noted. Advance Directives: There is no living will. home support is adequate. Assessment: 17:29 General: Appears in no apparent distress, comfortable, Behavior is appropriate for age, ms18 cooperative. Pain: Denies pain. Neurological: Level of Consciousness is awake, alert, obeys commands, Oriented to person, place, time. Respiratory: No deficits noted. Derm: Skin is pink, warm & dry. normal. 17:58 General: Appears in no apparent distress, comfortable, well nourished, well groomed, ms18 Behavior is appropriate for age, cooperative, pleasant. Pain: Denies pain. Neurological: Level of Consciousness is awake, alert, obeys commands, Oriented to person, place, time. Respiratory: No deficits noted. Airway is patent Respiratory effort is even, unlabored. Derm: Skin is pink, warm & dry. normal. Vital Signs: 14:17 BP 129 / 80; Pulse 103; Resp 18 S; Temp 98.0(O); Pulse Ox 98% on R/A; Weight 71.67 kg gr2 (R); Height 5 ft. 7 in. (170.18 cm) (R); Pain 3/10; 17:56 BP 122 / 82; Pulse 76; Resp 16; Temp 97.9(O); Pulse Ox 100% ; lr2 14:17 Body Mass Index 24.75 (71.67 kg, 170.18 cm) gr2 Vitals: 14:17 Log In Time: September 28, 2016 at 14:17. gr2 17:28 Heart Tones 145BPM. ms18 ED Course: 14:16 Patient visited by Carrie Ramírez. gr2 14:16 Patient moved to Waiting gr2 14:17 Other - Complete Info On Cds is Private Physician. gr2 14:18 Patient visited by Carrie Ramírez. gr2 14:18 Patient moved to Pre RCE gr2 14:34 Triage Initiated kcs 15:49 Patient moved to Triage 1 ms18 16:16 Marcin Blancas PA-C is PHCP. cc10 16:16 Martha Garcia MD is Attending Physician. cc10 16:16 Patient visited by Marcin Blancas PA-C. cc10 16:16 Patient visited by Marcin Blancas PA-C. cc10 16:32 [facility] is Private Physician. cc10 17:13 UA Sent. ms18 17:28 Patient visited by Cherrie Cortes RN. ms18 17:28 EKG done. (by ED staff). Reviewed by Marcin Blancas PA-C. ms18 17:29 Patient moved to TR2 ms18 17:43 [facility] is Referral Physician. cc10 17:50 Patient moved to PR1 / 25 ms18 17:58 The patient / caregiver is instructed regarding the plan of care and ED course. Patient ms18 has correct armband on for positive identification. Property sent home with patient. :Personal belongings accompany Pt. 17:58 No IV's were initiated during this patient's visit. No procedures done that require ms18 assistance. Administered Medications: 16:37 Not Given (Patient Refused; Pt states that her headache isn't severe enough for ms18 medicationss): Acetaminophen Tablet 975 mg PO once Order Results: Lab Order: UA; SPEC'M 09/28/16 17:13 Test: APPEARANCE, URINE; Value: CLEAR; Range: CLEAR; Status: F Test: COLOR, URINE; Value: YELLOW; Range: YELLOW; Status: F Test: PH,URINE; Value: 5.0; Range: 5.0-9.0; Units: UNITS; Status: F Test: SPECIFIC GRAVITY URINE AUTO; Value: 1.016; Range: 1.002-1.035; Status: F Test: PROTEIN, URINE AUTO; Value: NEGATIVE; Range: NEGATIVE; Units: mg/dL; Status: F Test: GLUCOSE, URINE (UA) AUTO; Value: NEGATIVE; Range: NEGATIVE; Units: mg/dL; Status: F Test: KETONE, URINE AUTO; Value: 1+; Range: NEGATIVE; Abnormal: Above high normal; Units: mg/dL; Status: F Test: UROBILINOGEN, URINE AUTO; Value: 0.2; Range: 0.0-2.0; Units: mg/dL; Status: F Test: BILIRUBIN, URINE AUTO; Value: NEGATIVE; Range: NEGATIVE; Status: F Test: NITRITE, URINE AUTO; Value: NEGATIVE; Range: NEGATIVE; Status: F Test: LEUKOCYTE ESTERASE, URINE AUTO; Value: NEGATIVE; Range: NEGATIVE; Status: F Test: BLOOD, URINE BLOOD; Value: 2+; Range: NEGATIVE; Abnormal: Above high normal; Status: F Test: WBC, URINE AUTO; Value: 0; Range: 0-3; Units: /HPF; Status: F Test: RBC, URINE AUTO; Value: 3; Range: 0-3; Units: /HPF; Status: F Test: BACTERIA, URINE AUTO; Value: NEGATIVE; Range: NEGATIVE; Status: F Test: SQUAMOUS EPITHELIAL CELL UR AU; Value: 1; Range: 0-6; Units: /HPF; Status: F Test: MUCUS, URINE; Value: SMALL; Range: NEGATIVE; Status: F Test: HYALINE CAST, URINE AUTO; Value: 1; Range: 0-1; Units: /LPF; Status: F Outcome: 17:43 Discharge ordered by Provider. cc10 17:58 Discharge Assessment: Patient awake, alert and oriented x 3. No cognitive and/or ms18 functional deficits noted. Patient verbalized understanding of disposition instructions. patient administered narcotics - no. The following High Risk Discharge criteria are identified: None. Discharged to home ambulatory. Condition: good Condition: stable Condition: improved. Discharge instructions given to patient, Instructed on discharge instructions, follow up and referral plans. Demonstrated understanding of instructions, Pt was receptive of discharge instructions/ teaching. No special radiology studies were completed. 18:00 Patient left the ED. ms18 Signatures: Matilda Mendes RN RN Carrie Pimentel gr2 Marcin Blancas PA-C PA-C cc10 Cherrie Cortes RN RN ms18 Allison Andrews lr2 Corrections: (The following items were deleted from the chart) 14:34 14:31 Presenting complaint: Patient states: on she started with right flank kcs pain - increased in intensity - states she sat on the toilet to pee and then passed out - woke up and went back to bed - was seen here, treated and released - did f/u with Ob but they did not do any testing and she continues to have a headache and right flank pain kcs MTDD
--- NOTE | 2016-09-29 09:56 | ECGEPIP ---
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
--- NOTE | 2016-09-30 19:00 | EDDOCDS ---
Physician Documentation [facility] Name: Ana Simeon Age: 36 yrs Sex: Female : 1980 Arrival Date: 09/28/2016 Time: 14:15 Bed PR Private MD: Radha Junior [facility] Disposition: 09/28/16 17:43 Discharged to Home/Self Care. Impression: Postconcussional syndrome, Low back pain, Hematuria. - Condition is Stable. - Discharge Instructions: General Headache Without Cause, Hematuria, Adult, Second Trimester of , [id number]. - Medication Reconciliation form. - Follow up: Radha Junior [facility]; When: Tomorrow; Reason: Wound/Symptom Recheck, Recheck today's complaints, Worsening of conditions, Continuance of care. - Problem is an ongoing problem. - Symptoms are unchanged. - Notes: May take tylenol as needed for pain Historical: - Allergies: No known drug Allergies; - Home Meds: 1. folic acid 1 mg Oral tab once daily 2. Vitamin Oral tab 1 tab once daily - PMHx: cardiac issues that she saw a paste mixer for and had an echo that may have shown a right ventricular delay; - PSHx: D & C; - Social history: Smoking status: Patient states former smoker of tobacco. No barriers to communication noted, The patient speaks fluent Israeli. - Family history: Not pertinent. - : The pt / caregiver states he / she is not on anticoagulants. Home medication list is obtained from the patient, [employer] import data. - Exposure Risk Screening:: None identified. 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 7 in. (170.18 cm) (R); Pain 3/10; 17:56 BP 122 / 82; Pulse 76; Resp 16; Temp 97.9(O); Pulse Ox 100% ; lr2 14:17 Body Mass Index 24.75 (71.67 kg, 170.18 cm) gr2 MDM: 16:13 ECG WITH READING ER PHYS+CARDIAG ordered. EDMS 16:31 Heart Tones ordered. cc10 16:32 Acetaminophen Tablet 975 mg PO once ordered. cc10 16:33 UA Ordered. EDMS 17:35 UA Reviewed. cc10 09/29 12:54 T-Sheet-- Draft Copy was scanned into [employer] and attached to record. gb 12:54 ECG/EKG was scanned into [employer] and attached to record. gb Administered Medications: 09/28 16:37 Not Given (Patient Refused; Pt states that her headache isn't severe enough for ms18 medicationss): Acetaminophen Tablet 975 mg PO once Signatures: Dispatcher [employer] EDMS Matilda Mendes, MACHO RN kcs Hope Rowe, Oswaldo Reg gb Marcin Blancas PA-C PAJbC ccCherrie Zaman RN RN ms18 The chart was reviewed and I authenticate all verbal orders and agree with the evaluation and treatment provided.Attachments: 09/29 12:54 T-Sheet-- Draft Copy gb 12:54 ECG/EKG gb Chart Complete MTDD
--- NOTE | 2016-09-30 19:00 | EDDOCDS ---
Nurse's Notes [facility] Name: Ana Galindo Age: 36 yrs Sex: Female : 1980 Arrival Date: 09/28/2016 Time: 14:15 Bed PR Private MD: Radha Junior [facility] Diagnosis: Postconcussional syndrome;Low back pain;Hematuria Presentation: 09/28 14:31 Presenting complaint: Patient states: on she started with right flank pain - kcs increased in intensity - states she sat on the toilet to pee and then passed out - woke up and went back to bed - was seen here, treated and released - did f/u with Ob but they did not do any testing and she continues to have a headache and right flank pain. is 18 weeks . Adult Sepsis Screening: The patient does not have new or worsening altered mentation. Patient's respiratory rate is less than 22. Systolic blood pressure is greater than 100. Patient has a qSOFA score of 0- Negative Sepsis Screen. Suicide/Homicide risk assessment- the patient denies having any suicidal and/or homicidal ideations and does not present with any other emotional, behavioral or mental health complaints. 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 Transition of care: patient was not received from another setting of care. 14:31 Acuity: MIS Level 3 kcs 14:31 Method Of Arrival: Walkin/Carried/Asstd kcs 17:59 This patient has no additional risk factors. ms18 Triage Assessment: 14:35 Headache History: A change in the character of the headache the patient is experiencing kcs has occured. General: Appears comfortable, well developed, well nourished, well groomed, Behavior is cooperative, pleasant. Pain: Location: head = 2/10 and right flank pain = 2/10. HIV screening NA for this visit active duty . Neurological: Level of Consciousness is awake, alert. Respiratory: Airway is patent Respiratory effort is even, unlabored, Respiratory pattern is regular, symmetrical. Derm: Skin is intact, is healthy with good turgor, Skin is dry, Skin is normal. 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 folic acid 1 mg Oral tab once daily 2. Vitamin Oral tab 1 tab once daily - PMHx: cardiac issues that she saw a rn pain management for and had an echo that may have shown a right ventricular delay; - PSHx: D & C; - Social history: Smoking status: Patient states former smoker of tobacco. No barriers to communication noted, The patient speaks fluent [place] Citizen. - Family history: Not pertinent. - : The pt / caregiver states he / she is not on anticoagulants. Home medication list is obtained from the patient, [employer] import data. - Exposure Risk Screening:: None identified. Screenin:58 Screening information is obtained from the patient. Fall risk: No risks identified. ms18 Assistance ADL's: requires no assistance with activities of daily living. Abuse/DV Screen: The patient / caregiver reports he/she is: not in a situation that causes fear, pain or injury. Nutritional screening: No deficits noted. Advance Directives: There is no living will. home support is adequate. Assessment: 17:29 General: Appears in no apparent distress, comfortable, Behavior is appropriate for age, ms18 cooperative. Pain: Denies pain. Neurological: Level of Consciousness is awake, alert, obeys commands, Oriented to person, place, time. Respiratory: No deficits noted. Derm: Skin is pink, warm & dry. normal. 17:58 General: Appears in no apparent distress, comfortable, well nourished, well groomed, ms18 Behavior is appropriate for age, cooperative, pleasant. Pain: Denies pain. Neurological: Level of Consciousness is awake, alert, obeys commands, Oriented to person, place, time. Respiratory: No deficits noted. Airway is patent Respiratory effort is even, unlabored. Derm: Skin is pink, warm & dry. normal. Vital Signs: 14:17 BP 129 / 80; Pulse 103; Resp 18 S; Temp 98.0(O); Pulse Ox 98% on R/A; Weight 71.67 kg gr2 (R); Height 5 ft. 7 in. (170.18 cm) (R); Pain 3/10; 17:56 BP 122 / 82; Pulse 76; Resp 16; Temp 97.9(O); Pulse Ox 100% ; lr2 14:17 Body Mass Index 24.75 (71.67 kg, 170.18 cm) gr2 Vitals: 14:17 Log In Time: September 28, 2016 at 14:17. gr2 17:28 Heart Tones 145BPM. ms18 ED Course: 14:16 Patient visited by Carrie Ramírez. gr2 14:16 Patient moved to Waiting gr2 14:17 Other - Complete Info On Cds is Private Physician. gr2 14:18 Patient visited by Carrie Ramírez. gr2 14:18 Patient moved to Pre RCE gr2 14:34 Triage Initiated kcs 15:49 Patient moved to Triage 1 ms18 16:16 Marcin Blancas PA-C is PHCP. cc10 16:16 Martha Garcia MD is Attending Physician. cc10 16:16 Patient visited by Marcin Blancas PA-C. cc10 16:16 Patient visited by Marcin Blancas PA-C. cc10 16:32 [facility] is Private Physician. cc10 17:13 UA Sent. ms18 17:28 Patient visited by Cherrie Cortes RN. ms18 17:28 EKG done. (by ED staff). Reviewed by Marcin Blancas PA-C. ms18 17:29 Patient moved to TR2 ms18 17:43 [facility] is Referral Physician. cc10 17:50 Patient moved to PR1 / 25 ms18 17:58 The patient / caregiver is instructed regarding the plan of care and ED course. Patient ms18 has correct armband on for positive identification. Property sent home with patient. :Personal belongings accompany Pt. 17:58 No IV's were initiated during this patient's visit. No procedures done that require ms18 assistance. 09/29 10:05 EKG-ADULT Returned. EDMS 12:54 T-Sheet-- Draft Copy was scanned into [employer] and attached to record. gb 12:54 ECG/EKG was scanned into [employer] and attached to record. gb Administered Medications: 09/28 16:37 Not Given (Patient Refused; Pt states that her headache isn't severe enough for ms18 medicationss): Acetaminophen Tablet 975 mg PO once Order Results: Lab Order: UA; SPEC'M 09/28/16 17:13 Test: APPEARANCE, URINE; Value: CLEAR; Range: CLEAR; Status: F Test: COLOR, URINE; Value: YELLOW; Range: YELLOW; Status: F Test: PH,URINE; Value: 5.0; Range: 5.0-9.0; Units: UNITS; Status: F Test: SPECIFIC GRAVITY URINE AUTO; Value: 1.016; Range: 1.002-1.035; Status: F Test: PROTEIN, URINE AUTO; Value: NEGATIVE; Range: NEGATIVE; Units: mg/dL; Status: F Test: GLUCOSE, URINE (UA) AUTO; Value: NEGATIVE; Range: NEGATIVE; Units: mg/dL; Status: F Test: KETONE, URINE AUTO; Value: 1+; Range: NEGATIVE; Abnormal: Above high normal; Units: mg/dL; Status: F Test: UROBILINOGEN, URINE AUTO; Value: 0.2; Range: 0.0-2.0; Units: mg/dL; Status: F Test: BILIRUBIN, URINE AUTO; Value: NEGATIVE; Range: NEGATIVE; Status: F Test: NITRITE, URINE AUTO; Value: NEGATIVE; Range: NEGATIVE; Status: F Test: LEUKOCYTE ESTERASE, URINE AUTO; Value: NEGATIVE; Range: NEGATIVE; Status: F Test: BLOOD, URINE BLOOD; Value: 2+; Range: NEGATIVE; Abnormal: Above high normal; Status: F Test: WBC, URINE AUTO; Value: 0; Range: 0-3; Units: /HPF; Status: F Test: RBC, URINE AUTO; Value: 3; Range: 0-3; Units: /HPF; Status: F Test: BACTERIA, URINE AUTO; Value: NEGATIVE; Range: NEGATIVE; Status: F Test: SQUAMOUS EPITHELIAL CELL UR AU; Value: 1; Range: 0-6; Units: /HPF; Status: F Test: MUCUS, URINE; Value: SMALL; Range: NEGATIVE; Status: F Test: HYALINE CAST, URINE AUTO; Value: 1; Range: 0-1; Units: /LPF; Status: F Radiology Order: EKG-ADULT Test: EKG-ADULT REASON FOR EXAMINATION: passed out; Stationary ECG Study; 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 cc10 17:58 Discharge Assessment: Patient awake, alert and oriented x 3. No cognitive and/or ms18 functional deficits noted. Patient verbalized understanding of disposition instructions. patient administered narcotics - no. The following High Risk Discharge criteria are identified: None. Discharged to home ambulatory. Condition: good Condition: stable Condition: improved. Discharge instructions given to patient, Instructed on discharge instructions, follow up and referral plans. Demonstrated understanding of instructions, Pt was receptive of discharge instructions/ teaching. No special radiology studies were completed. 18:00 Patient left the ED. ms18 Signatures: Dispatcher [employer] EDMS Matilda Mendes RN RN kcs Hope Rowe, Reg Reg gb Carrie Ramírez gr2 Marcin Blancas PAGeorgina PAJbC cc10 Cherrie Cortes RN RN ms18 Allison Andrews lr2 Corrections: (The following items were deleted from the chart) 14:34 14:31 Presenting complaint: Patient states: on she started with right flank kcs pain - increased in intensity - states she sat on the toilet to pee and then passed out - woke up and went back to bed - was seen here, treated and released - did f/u with Ob but they did not do any testing and she continues to have a headache and right flank pain kcs Chart Complete MTDD
--- NOTE | 2016-09-30 19:00 | EDDOCDS ---
Physician Documentation [facility] Name: Ana Simeon Age: 36 yrs Sex: Female : 1980 Arrival Date: 09/28/2016 Time: 14:15 Bed PR Private MD: Radha Junior [facility] Disposition: 09/28/16 17:43 Discharged to Home/Self Care. Impression: Postconcussional syndrome, Low back pain, Hematuria. - Condition is Stable. - Discharge Instructions: General Headache Without Cause, Hematuria, Adult, Second Trimester of , [id number]. - Medication Reconciliation form. - Follow up: Radha Junior [facility]; When: Tomorrow; Reason: Wound/Symptom Recheck, Recheck today's complaints, Worsening of conditions, Continuance of care. - Problem is an ongoing problem. - Symptoms are unchanged. - Notes: May take tylenol as needed for pain Historical: - Allergies: No known drug Allergies; - Home Meds: 1. folic acid 1 mg Oral tab once daily 2. Vitamin Oral tab 1 tab once daily - PMHx: cardiac issues that she saw a bulk intake worker for and had an echo that may have shown a right ventricular delay; - PSHx: D & C; - Social history: Smoking status: Patient states former smoker of tobacco. No barriers to communication noted, The patient speaks fluent [place]. - Family history: Not pertinent. - : The pt / caregiver states he / she is not on anticoagulants. Home medication list is obtained from the patient, [employer] import data. - Exposure Risk Screening:: None identified. 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 7 in. (170.18 cm) (R); Pain 3/10; 17:56 BP 122 / 82; Pulse 76; Resp 16; Temp 97.9(O); Pulse Ox 100% ; lr2 14:17 Body Mass Index 24.75 (71.67 kg, 170.18 cm) gr2 MDM: 16:13 ECG WITH READING ER PHYS+CARDIAG ordered. EDMS 16:31 Heart Tones ordered. cc10 16:32 Acetaminophen Tablet 975 mg PO once ordered. cc10 16:33 UA Ordered. EDMS 17:35 UA Reviewed. cc10 09/29 12:54 T-Sheet-- Draft Copy was scanned into [employer] and attached to record. gb 12:54 ECG/EKG was scanned into [employer] and attached to record. gb Administered Medications: 09/28 16:37 Not Given (Patient Refused; Pt states that her headache isn't severe enough for ms18 medicationss): Acetaminophen Tablet 975 mg PO once Signatures: Dispatcher [employer] EDMS Matilda Mendes, MACHO RN kcs Hope Rowe, Oswaldo Reg gb Marcin Blancas PA-C PAJbC ccCherrie Zaman RN RN ms18 The chart was reviewed and I authenticate all verbal orders and agree with the evaluation and treatment provided.Attachments: 09/29 12:54 T-Sheet-- Draft Copy gb 12:54 ECG/EKG gb Chart Complete MTDD
== END 2016-09-28 18:00 | disposition home or self-care (01) ==
LOC: M ED 14:15
DX: O99.351 Diseases of the nervous system complicating pregnancy, first trimester (principal); G44.309 Post-traumatic headache, unspecified, not intractable; O99.89 Other specified diseases and conditions complicating pregnancy, childbirth and the puerperium; R31.9 Hematuria, unspecified; M54.5 Low back pain; Z87.891 Personal history of nicotine dependence; Z3A.18 18 weeks gestation of pregnancy

== ENCOUNTER 2017-01-29 21:23 | Inpatient (IN) | payer OTHER ==
[~2017-01-29] VITALS: Ht 170.2 cm; Wt 81.0 kg
[2017-01-29 21:40] VITALS: BP 124/86
[2017-01-29] MEDS ORDERED: LR 1,000 ML IV SCH (22:31)
[2017-01-29] MEDS ORDERED: PENICILLIN G POTASSIUM IV 5 MU in D5W MINI-BAG PLUS 100 ML IV STA (22:31)
[2017-01-29] MEDS ORDERED: OXYTOCIN DRIP 30 UNITS in APPROPRIATE DILUENT 1 EA IV SCH (22:45)
[2017-01-29 22:53] LABS: MEAN CORPUSCULAR HEMOGLOBIN 31.1 pg (27.0-33.0); MEAN CORPUSCULAR HGB CONC 34.2 g/dl (32.0-36.5); RED CELL DISTRIBUTION WIDTH 12.7 % (11.5-14.5); WHITE BLOOD COUNT 16.7 K/mm3 (4.0-10.0)
[2017-01-29] MEDS ORDERED: BETAMETHASONE SOLUSPAN 6MG/ML INJ 5ML (J0702) IM SCH (23:15)
[2017-01-29 23:46] VITALS: BP 106/68
[2017-01-30] VITALS (9 sets, daily range): BP systolic 105–135; BP diastolic 59–81
[2017-01-30] MEDS ORDERED: ACETAMINOPHEN 500 MG TAB PO PRN (01:45)
[2017-01-30] MEDS ORDERED: ANUSOL HC CREAM 30GM TOP PRN (01:45)
[2017-01-30] MEDS ORDERED: IBUPROFEN 800 MG TAB PO PRN (01:45)
[2017-01-30] MEDS ORDERED: PROMETHAZINE 25 MG TAB PO PRN (01:45)
[2017-01-30] MEDS ORDERED: MOM 30ML SUSPENSION UDC PO PRN (01:45)
[2017-01-30] MEDS ORDERED: DOCUSATE SODIUM 100 MG CAP PO PRN (01:45)
[2017-01-30] MEDS ORDERED: MEASLES,MUMPS,RUBELLA VACCINE INJ (MMR-II) (90707) SC SCH (01:45)
[2017-01-30] MEDS ORDERED: ONDANSETRON 4MG/2ML VIAL (J2405) IV PRN (01:45)
[2017-01-30] MEDS ORDERED: RHOGAM 300 MCG (1500 IU) INJ (J2790) IM SCH (01:45)
[2017-01-30] MEDS ORDERED: DIBUCAINE 1% OINTMENT 30GM TOP PRN (01:45)
[2017-01-30] MEDS ORDERED: LIDOCAINE 1% MDV INJ 50 ML VIAL INFIL ONE (01:45)
[2017-01-30] MEDS ORDERED: METHYLERGONOVINE MALEATE 0.2 MG TAB PO PRN (01:45)
[2017-01-30] MEDS ORDERED: PENICILLIN G POTASSIUM IV 2.5 MU in D5W 100 ML IV SCH (03:00)
[2017-01-30] MEDS: PRENATAL VITAMINS CHEWABLE TABLET PO SCH (08:34)
[2017-01-31 05:49] VITALS: BP 103/60
[2017-01-31] MEDS: PRENATAL VITAMINS CHEWABLE TABLET PO SCH (09:44)
[2017-01-31 17:59] VITALS: BP 111/74
[2017-02-01 05:43] VITALS: BP 131/69
--- NOTE | 2017-02-01 06:50 | IPNPDOC ---
Text Note Date of Service The patient was seen on 02/01/17. NOTE PPD2 prog note States feeling well, no complaints. No heavy VB. Pain controlled. Voiding, ambulatory. Bonding well and breast feeding well. VSSAF CTAB RRR Ut at U-2, firm Ext no CCE a/p: Doing well. d/c this morning. To bonding if baby not released. Sessions VS,Evie, I+O VSEvie, I+O Vital Signs Date Time Temp Pulse Resp B/P (MAP) Pulse Ox O2 Delivery O2 Flow Rate FiO2 02/01/17 05:43 98.2 86 18 131/69 (89) 01/30/17 04:30 Room Air SESSIONS,JAI Silver MD Feb 01, 2017 06:50
--- NOTE | 2017-02-01 06:57 | DS.PDOC ---
Discharge Summary General Date of Admission Jan 29, 2017 at 22:12 Date of Discharge [id number] Discharge Summary PROCEDURES PERFORMED DURING STAY: spontaneous vaginal delivery ADMITTING DIAGNOSIS: 1. premature ruptured membranes at 35+6 weeks DISCHARGE DIAGNOSES: 1. Healthy male infant HOSPITAL COURSE: Admitted for active labor/PPROM and delivery. GBS unknown. Uncomplicated, see delivery note. DISCHARGE MEDICATIONS: Motrin, Tylenol, Colace, Lanolin, Dibucaine Physical exam: see note from this morning LABORATORY DATA: Please see below. ACTIVITY: as tolerated. Nothing in vagina for 6 weeks. DIET: regular DISPOSITION:stable TIME SPENT ON DISCHARGE: Greater than 15 minutes. Sessions Vital Signs/I&Os Vital Signs Date Time Temp Pulse Resp B/P (MAP) Pulse Ox O2 Delivery O2 Flow Rate FiO2 02/01/17 05:43 98.2 86 18 131/69 (89) 01/30/17 04:30 Room Air Microbiology Microbiology 01/29/17 Group B Streptococcus Screen (DEAN), Received Pending Allergies Coded Allergies: No Known Allergies (Unverified , 01/29/17) SESSIONS,JAI Silver MD Feb 01, 2017 06:57
== END 2017-02-01 15:00 | disposition home or self-care (01) | DRG 775 ==
LOC: M LDO 21:23 → M LDI 22:12 → M OBS 01-30 04:21
PROVIDERS: ADMIT Student in an Organized Health Care Education/Training Program; ATTEND Student in an Organized Health Care Education/Training Program
PROC: 10E0XZZ Delivery of Products of Conception, External Approach (ICD-10-PCS; principal; 2017-01-30)
PROC: 0KQM0ZZ Repair Perineum Muscle, Open Approach (ICD-10-PCS; 2017-01-30)
PROC: 0HQ9XZZ Repair Perineum Skin, External Approach (ICD-10-PCS; 2017-01-30)
DX: O60.14X0 Preterm labor third trimester with preterm delivery third trimester, not applicable or unspecified (principal); Z37.0 Single live birth; Z3A.35 35 weeks gestation of pregnancy; O70.1 Second degree perineal laceration during delivery; O70.0 First degree perineal laceration during delivery

== ENCOUNTER → 2017-06-28 | Outpatient (CLI) | payer OTHER ==
--- NOTE | 2017-06-28 15:30 | REP ---
Bilateral lower extremity Duplex Doppler venous ultrasound: Real time compression and duplex Doppler interrogation of the bilateral lower extremity deep venous system is performed. Bilaterally, the common femoral, superficial femoral and popliteal veins are fully compressible with transducer pressure and demonstrate normal spontaneous and phasic flow, without evidence of deep venous thrombosis. Impression: No evidence of deep venous thrombosis of the bilateral lower extremity femoral popliteal venous system. Signed by Herrera Bee MD 06/28/2017 03:22 P
== END ==
LOC: M RAD 14:38
PROVIDERS: ATTEND Physician Assistant
DX: R60.9 Edema, unspecified (principal)

== ENCOUNTER → 2017-09-15 | Outpatient (CLI) | payer OTHER | LOC: M RAD 14:18 | DX: I87.2 Venous insufficiency (chronic) (peripheral) (principal) | CPT/HCPCS: 93970 ==

== ENCOUNTER 2018-04-07 03:33 | Inpatient (IN) | payer OTHER ==
[2018-04-07] MEDS ORDERED: OXYTOCIN 30 UNITS IN 0.9% NaCl 500ML IV BAG (J2590) As Ordered (03:35)
[2018-04-07] MEDS ORDERED: LR 1,000 ML IV (04:01)
[2018-04-07] MEDS ORDERED: OXYTOCIN DRIP 30 UNITS in APPROPRIATE DILUENT 1 EA IV (04:05)
[2018-04-07 04:09] LABS: CORD GAS ABE V -2.1; CORD GAS HCO3 A 30.9 MEQ/L; CORD GAS O2 SAT A < 15.0 %; CORD GAS O2 SAT V 38.7 %; CORD GAS PCO2 V 45.8 mmHg; CORD GAS PH A 7.238 UNITS; CORD GAS PH V 7.337 UNITS; CORD GAS PO2 A < 10.0 mmHg; CORD GAS PO2 V 17.4 mmHg; CORD GAS SBC V 21.1 MEQ/L; CORD GAS TCO2 A 33.1 MEQ/L; CORD GAS TCO2 V 25.4 MEQ/L
[2018-04-07] MEDS ORDERED: RHOGAM 300 MCG (1500 IU) INJ (J2790) IM (04:15)
[2018-04-07] MEDS ORDERED: DIBUCAINE 1% OINTMENT 30GM TOP (04:15)
[2018-04-07] MEDS ORDERED: MOM 30ML SUSPENSION UDC PO (04:15)
[2018-04-07] MEDS ORDERED: METHYLERGONOVINE MALEATE 0.2 MG TAB PO (04:15)
[2018-04-07] MEDS ORDERED: MEASLES,MUMPS,RUBELLA VACCINE INJ (MMR-II) (90707) SC (04:15)
[2018-04-07] MEDS ORDERED: ACETAMINOPHEN 500 MG TAB PO (04:15)
[2018-04-07] MEDS ORDERED: OXYTOCIN INJ 10 UNITS/ML VIAL (J2590) IV (04:15)
[2018-04-07] MEDS ORDERED: DOCUSATE SODIUM 100 MG CAP PO (04:15)
[2018-04-07] MEDS ORDERED: ANUSOL HC CREAM 30GM TOP (04:15)
[2018-04-07] MEDS ORDERED: OXYTOCIN INJ 10 UNITS/ML VIAL (J2590) As Ordered (04:20)
[2018-04-07 08:07] LABS: BASO % 0.2 % (0.0-1.0); EOS % 0.1 % (0.0-3.0); HEMATOCRIT 38.9 % (36.0-47.0); HEMOGLOBIN 12.9 g/dl (12.0-15.5); IMMATURE GRANULOCYTE % 1.3 % (0-3.0); LYMPH # 1.7 10^3/uL (1.5-4.5); LYMPH % 7.6 % (24.0-44.0); MEAN CORPUSCULAR HGB CONC 33.2 g/dl (32.0-36.5); MEAN CORPUSCULAR VOLUME 90.5 fl (80.0-96.0); MONO % 4.4 % (0.0-5.0); NEUTROPHILS # 18.9 10^3/uL (1.8-7.7); NEUTROPHILS % 86.4 % (36.0-66.0); PLATELET COUNT, AUTOMATED 235 10^3/uL (150-450); RED CELL DISTRIBUTION WIDTH 13.6 % (11.5-14.5); WHITE BLOOD COUNT 21.9 10^3/uL (4.0-10.0)
[2018-04-07] MEDS: PRENATAL VITAMINS CHEWABLE TABLET PO (09:24)
[2018-04-07] MEDS: IBUPROFEN 800 MG TAB PO (20:14)
[2018-04-08 07:07] LABS: HEMATOCRIT 35.9 % (36.0-47.0); HEMOGLOBIN 11.8 g/dl (12.0-15.5); MEAN CORPUSCULAR HEMOGLOBIN 30.3 pg (27.0-33.0); MEAN CORPUSCULAR HGB CONC 32.9 g/dl (32.0-36.5); MEAN CORPUSCULAR VOLUME 92.1 fl (80.0-96.0); PLATELET COUNT, AUTOMATED 206 10^3/uL (150-450); WHITE BLOOD COUNT 13.5 10^3/uL (4.0-10.0)
[2018-04-08] MEDS: PRENATAL VITAMINS CHEWABLE TABLET PO (08:02)
[2018-04-08] MEDS: IBUPROFEN 800 MG TAB PO (08:19)
== END 2018-04-08 14:11 | disposition home or self-care (01) | DRG 775 ==
LOC: M LDI 03:33 → M OBS 06:12
PROC: 10E0XZZ Delivery of Products of Conception, External Approach (ICD-10-PCS; principal; 2018-04-07)
PROC: 0HQ9XZZ Repair Perineum Skin, External Approach (ICD-10-PCS; 2018-04-07)
DX: O70.0 First degree perineal laceration during delivery (principal); Z3A.37 37 weeks gestation of pregnancy; Z37.0 Single live birth

== ENCOUNTER → 2018-12-08 | Outpatient (CLI) | payer OTHER ==
[~2018-12-08] MED LIST: COLA100C5 PO; DIBU10OI TOP; IBUP-1114 PO; MAPA500T2 PO; MOM30SS PO; PRENTAB9 PO
--- NOTE | 2018-12-08 16:17 | REP ---
REASON: Reflux study. TECHNIQUE: Multiple ultrasonographic images of the deep venous structures of the bilateral thighs were obtained from the common femoral vein to the popliteal vein along with Doppler interrogation and color flow Doppler images. FINDINGS: There is no abnormal echogenic material seen within any of the visualized deep venous structures that would suggest acute thrombosis. Coaptation is unremarkable throughout. Doppler interrogation shows an expected response to respiratory variability and augmentation. The color flow images show what appears to be a normal vascular pattern throughout. On the right reflux was seen in the common femoral vein. The anterior accessory greater saphenous vein was present but no reflux was seen within that vessel. Reflux was seen in the greater saphenous vein at the saphenofemoral junction. The AP dimension of which is 4.8 mm and the duration of reflux is 2.8 seconds. Greater saphenous vein at mid thigh reflux was noted of 2 seconds duration. Greater saphenous vein at the level of the knee no reflux was noted the AP dimension of which is 3.8 mm. Reflux was seen in the superficial femoral vein, proximal, middle and distal portions along with reflux seen in the popliteal vein. No reflux was seen in the lesser saphenous vein, AP dimension of which is 2 mm. On the left reflux was seen in the common femoral vein and an anterior accessory greater saphenus vein was present, however, no reflux was noted in that vessel. The greater saphenous vein at the saphenofemoral junction was seen without reflux in the AP dimension which is 4.4 mm. No reflux was seen in the greater saphenous vein at the mid thigh level, the AP dimension of which is 3.1 mm. At the knee the greater saphenous vein was seen without reflux, AP dimension of which is 3.6 mm. Reflux was seen in the proximal superficial femoral vein, however, no reflux was seen in the mid or distal portions of that vessel. No reflux was seen in the popliteal vein or lesser saphenous vein. The AP dimension of which is 3.7 mm. IMPRESSION: Abnormal bilateral reflux study as described above. Electronically Signed by uArelio Moyer DO 12/08/2018 04:40 P
== END ==
LOC: M RAD 12:14
PROVIDERS: ATTEND Surgery Vascular Surgery
DX: Z86.79 Personal history of other diseases of the circulatory system (principal)

== ENCOUNTER → 2019-03-30 | Day surgery (SDC) | payer OTHER ==
[~2019-03-30] VITALS: Ht 170.2 cm; Wt 69.4 kg
[~2019-03-30] MED LIST changes: +LR 1,000 ML IV ONE; +PREVTAB2 PO; +ZYRTTAB8 PO
[2019-03-30 11:20] VITALS: BP 114/78
[2019-03-30 11:47] LABS: URINE PREG TEST NEGATIVE (NEGATIVE)
== END | disposition home or self-care (01) ==
LOC: M SDC 10:11
PROVIDERS: ATTEND Surgery Vascular Surgery
DX: R60.0 Localized edema (principal); Z53.9 Procedure and treatment not carried out, unspecified reason

== ENCOUNTER 2019-05-15 12:29 | Outpatient (RCR) | payer OTHER ==
[~2019-05-15 12:29] MED LIST changes: -LR 1,000 ML IV ONE
== END 2019-06-07 ==
LOC: M PT 12:29
PROVIDERS: ATTEND Physician Assistant
DX: I89.0 Lymphedema, not elsewhere classified (principal); I87.2 Venous insufficiency (chronic) (peripheral)

== ENCOUNTER → 2019-05-18 | Outpatient (CLI) | payer OTHER ==
[~2019-05-18] MED LIST changes: +CONRAY-43 43% 50ML VIAL (Q9960) As Ordered ONE; +LIDOCAINE 1% MDV 20ML VIAL As Ordered ONE; +PROHANCE 279.3MG/ML 5ML VIAL (A9576) As Ordered ONE
--- NOTE | 2019-05-18 09:56 | REP ---
MR ARTHROGRAM LEFT HIP: TECHNIQUE: Coronal T1, STIR through the pelvis, post arthrogram axial T1 fat sat, T2 fat sat, coronal T1 fat sat, T2 fat sat, sagittal T1 fat sat, axial oblique T1 fat sat left hip. Visualized osseous structures demonstrate no occult fracture or avascular necrosis. There is mild marrow edema in the subcortical region of the greater trochanter of the proximal left femur. There is ill-defined high signal on T2-weighted images in the adjacent tendinous structures at that location. Findings are compatible with a moderate degree of greater trochanteric tendinobursitis at that location with reactive changes in the bone. There is no evidence of a labral tear. No paralabral cyst is seen. The other surrounding soft tissue structures demonstrate no abnormal signal. The visualized intrapelvic structures are unremarkable in appearance. IMPRESSION: Findings compatible with moderate degree of left sided greater trochanteric tendinobursitis with mild reactive marrow changes in the greater trochanter in a subcortical location. There is no evidence of a labral tear. No other significant finding. Electronically Signed by Herrera Bee MD 05/22/2019 08:41 A
--- NOTE | 2019-05-22 09:18 | REP ---
LEFT HIP ARTHROGRAM The procedure was performed under the direction supervision of Dr. Bee. The benefits and risks including but not limited to pain, infection, bleeding and anaphylaxis were explained to the patient and informed consent was obtained. The left femoral neck was localized using fluoroscopic guidance. Skin was prepped and draped in a sterile fashion. 1% lidocaine was used as a local anesthetic. Using fluoroscopic guidance a 22 gauge spinal needle was inserted and advanced to the femoral neck. 0.5 ml of Conray 43 was injected to verify placement. 11 ml of a solution containing 20 ml of sterile saline and 0.15 ml of ProHance was injected into the joint. The needle was removed and the patient was taken to MRI for postprocedural imaging. The patient tolerated the procedure well and there were no immediate complications. Less than 6 seconds of fluoro time was utilized for this procedure. Electronically Signed by TANYA Jeffers 05/18/2019 03:04 P Electronically Signed by Herrera Bee MD 05/22/2019 09:09 A
== END ==
LOC: M RADPRO 06:33
PROVIDERS: ATTEND Physician Assistant
DX: M70.60 Trochanteric bursitis, unspecified hip (principal); G89.29 Other chronic pain; M25.552 Pain in left hip
CPT/HCPCS: 27093; 73723; 77002; A9576; Q9960

== ENCOUNTER 2019-07-03 15:00 | Outpatient (RCR) | payer OTHER ==
[~2019-07-03 15:00] MED LIST changes: -CONRAY-43 43% 50ML VIAL (Q9960) As Ordered ONE; -LIDOCAINE 1% MDV 20ML VIAL As Ordered ONE; -PROHANCE 279.3MG/ML 5ML VIAL (A9576) As Ordered ONE
== END 2019-07-07 ==
LOC: M PT 15:00
PROVIDERS: ATTEND Physician Assistant
DX: I87.2 Venous insufficiency (chronic) (peripheral) (principal); I89.0 Lymphedema, not elsewhere classified

== ENCOUNTER 2019-07-27 15:00 | Outpatient (RCR) | payer OTHER | END 2019-08-07 | LOC: M PT 15:00 | PROVIDERS: ATTEND Physician Assistant | DX: I87.2 Venous insufficiency (chronic) (peripheral) (principal) ==

== ENCOUNTER 2020-02-04 15:45 | Outpatient (RCR) | payer OTHER | END 2020-02-05 | LOC: M PT 15:45 | PROVIDERS: ATTEND Physician Assistant | DX: I89.0 Lymphedema, not elsewhere classified (principal); I73.9 Peripheral vascular disease, unspecified ==

== ENCOUNTER 2020-02-16 16:15 | Emergency (ER) | payer OTHER ==
[~2020-02-16] VITALS: Ht 170.2 cm; Wt 68.4 kg
[2020-02-16 17:11] LABS: HEMATOCRIT 44.5 % (36.0-47.0); HEMOGLOBIN 14.3 g/dl (12.0-15.5); MEAN CORPUSCULAR HEMOGLOBIN 29.4 pg (27.0-33.0); MEAN CORPUSCULAR HGB CONC 32.1 g/dl (32.0-36.5); MEAN CORPUSCULAR VOLUME 91.6 fl (80.0-96.0); PLATELET COUNT, AUTOMATED 212 10^3/uL (150-450); RED BLOOD COUNT 4.86 10^6/uL (4.00-5.40); WHITE BLOOD COUNT 13.6 10^3/uL (4.0-10.0)
[2020-02-16] MEDS ORDERED: ISOVUE-370 76% 100ML VIAL As Ordered ONE (17:17)
[2020-02-16 17:27] LABS: EOSINOPHILS 1 % (0-3); LYMPHOCYTES 16 % (16-44); MONOCYTES 6 % (0-5); NEUTROPHILS 74 % (28-66); PLATELET ESTIMATE NORMAL (NORMAL)
[2020-02-16 17:30] LABS: ERYTHROCYTE SEDIMENTATION RATE 21 mm/hr (0-20)
--- NOTE | 2020-02-16 17:32 | REPVR ---
PROCEDURE INFORMATION: Exam: CT Neck With Contrast Exam date and time: 02/16/2020 5:10 PM Age: 39 years old Clinical indication: Abscess, tonsil; Additional info: L tonsillar enlargement R/O abscess TECHNIQUE: Imaging protocol: Computed tomography images of the neck with intravenous contrast. Radiation optimization: All CT scans at this facility use at least one of these dose optimization techniques: automated exposure control; mA and/or kV adjustment per patient size (includes targeted exams where dose is matched to clinical indication); or iterative reconstruction. Contrast material: ISOVUE 370; Contrast volume: 75 ml; Contrast route: INTRAVENOUS (IV); COMPARISON: No relevant prior studies available. FINDINGS: Mastoid air cells: The visualized mastoid air cells are clear. Sinuses: Rounded soft tissue in the right maxillary sinus is most consistent with a retention cyst or polyp. The visualized paranasal sinuses are otherwise clear. No fluid levels. Nasopharynx: There is mild hypertrophy and hyperenhancement of the adenoids. Oropharynx: The bilateral palatine tonsils are enlarged and demonstrate striated hyperenhancement consistent with acute tonsillitis. No associated fluid collections are identified. There is hypertrophy and hyperenhancement of the lingual tonsils. Hypopharynx: The hypopharynx appears unremarkable. Larynx: The larynx and epiglottis appear unremarkable. Retropharyngeal space: The retropharyngeal tissues appear unremarkable. Submandibular/Parotid glands: The submandibular glands and the parotid glands are unremarkable and symmetric bilaterally. Thyroid: The thyroid gland is normal. Lymph nodes: There are multiple enlarged bilateral cervical lymph nodes, most prominent in the jugular chains bilaterally. There is heterogeneous enhancement of a left jugular chain lymph node or chain of nodes in the jugulodigastric region, which measures 4.5 cm in length and up to 1.7 x 1.7 cm in AP and transverse dimension. Trachea: The trachea is normal. Lungs: The visualized lungs are grossly clear. Bones/joints: No suspicious osseous lesions. No acute fractures or dislocations. Vasculature: The visualized vasculature appears unremarkable. Soft tissues: The soft tissues appear unremarkable. IMPRESSION: 1. Enlargement and hyperenhancement of the adenoids, palatine tonsils, and lingual tonsils, consistent with acute tonsillitis. No abscess identified. 2. Bilateral cervical lymphadenopathy, likely reactive. Heterogeneous hyperenhancement of left jugular digastric lymph node without evidence of an intranodal abscess. Electronically signed by: Erika Uriarte On 02/16/2020 17:32:11 PM
[2020-02-16 17:35] LABS: MONO REFLEX EBV COMP NEGATIVE (NEGATIVE)
[2020-02-16] MEDS ORDERED: PENI500T PO (17:40)
[2020-02-16] MEDS ORDERED: PENICILLIN V POTASSIUM 500 MG TAB PO ONE (17:45)
[2020-02-16 18:11] VITALS: BP 125/88
[2020-02-19 18:13] LABS: EBV AB TO NUCLEAR ANTIGEN 34.9 U/mL (0.0-17.9); EBV VIRAL CAPSID AG IgG >600.0 U/mL (0.0-17.9); EBV VIRAL CAPSID AG IgM <36.0 U/mL (0.0-35.9)
== END 2020-02-16 18:19 | disposition home or self-care (01) ==
LOC: M ED 16:15
DX: J02.0 Streptococcal pharyngitis (principal); Z79.3 Long term (current) use of hormonal contraceptives; Z79.899 Other long term (current) drug therapy
CPT/HCPCS: 70491; 80047; 85025; 85652; 86140; 86308; 86664; 86665; 87880; 99284; Q9967